=== PATIENT | male | born 1960 | race Caucasian/White ===

== ENCOUNTER 2017-07-21 21:51 | Emergency (ER) | payer OTHER ==
[~2017-07-21] VITALS: Ht 177.8 cm; Wt 136.0 kg
[2017-07-21 21:57] VITALS: BP 163/85; PULSE 93; RESP 18; TEMP 98.7; O2SAT 96
[2017-07-21] MEDS ORDERED: SODIUM CHLORIDE 0.9% FLUSH 10 ML FLUSH IVF PRN (22:15)
[2017-07-21 22:27] VITALS: PULSE 97; RESP 20; O2SAT 96
[2017-07-21] MEDS ORDERED: ASPIRIN 81 MG CHEW TAB CHEW ONE (22:30)
[2017-07-21 22:32] LABS: AUTOMATED NEUTROPHIL # 5.7 TH/MM3 (1.8-7.7); BASOPHIL # 0.1 TH/MM3 (0-0.2); BASOPHIL % 0.7 % (0.0-2.0); EOSINOPHIL # 0.1 TH/MM3 (0-0.4); EOSINOPHIL % 0.7 % (0.0-4.0); HEMATOCRIT 43.6 % (39.0-51.0); HEMOGLOBIN 14.6 GM/DL (13.0-17.0); LYMPH % 23.4 % (9.0-44.0); MEAN CELL VOLUME 93.1 FL (80.0-100.0); MEAN CORPUSCULAR HEMOGLOBIN 31.2 PG (27.0-34.0); MEAN CORPUSCULAR HGB CONC 33.5 % (32.0-36.0); MEAN PLATELET VOLUME 8.1 FL (7.0-11.0); MONO % 8.7 % (0.0-8.0); MONOCYTE # 0.7 TH/MM3 (0-0.9); NEUT % 66.5 % (16.0-70.0); PLATELET COUNT 224 TH/MM3 (150-450); RED BLOOD COUNT 4.68 MIL/MM3 (4.50-5.90); RED CELL DISTRIBUTION WIDTH 16.7 % (11.6-17.2); WHITE BLOOD COUNT 8.5 TH/MM3 (4.0-11.0)
--- NOTE | 2017-07-21 22:33 | PD ---
HPI Chief Complaint: Chest Pain Time Seen by Provider: 22:01 Travel History International Travel<30 days: No Contact w/Intl Traveler<30days: No Traveled to known affect area: No History of Present Illness HPI Patient 57-year-old male presents emergency department heavily intoxicated, his chief complaint to me is that he is tired of being an alcoholic and has tried to quit multiple times and it just keeps relapsing. He did have a complaint of chest pain which he does not endorse until I specifically asked him about it. He states it feels uncomfortable in the middle of his chest without radiation, no shortness of breath no nausea no vomiting no dizziness. As stated above he is heavily intoxicated on arrival, he also later in his history stated that he just needed a place to stay for 4 days because he is probably her back down to [place] to move back in the air. Symptoms moderate, duration unknown associated signs and symptoms in context as above PFSH Past Medical History Bipolar Disorder: Yes Anxiety: Yes Depression: Yes Chest Pain: Yes Diabetes: No Patient Takes Glucophage: No Diminished Hearing: No Psychiatric: Yes Immunizations Current: Yes Tetanus Vaccination: < 5 Years Influenza Vaccination: Yes Social History Alcohol Use: Yes (DAILY) Tobacco Use: Yes (1PPD) Substance Use: No Allergies-Medications (Allergen,Severity, Reaction): Coded Allergies: No Known Allergies (Unverified , 07/21/17) Reported Meds & Prescriptions Reported Meds & Active Scripts Active No Active Prescriptions or Reported Medications Review of Systems Except as stated in HPI: all other systems reviewed are Neg Physical Exam Narrative GENERAL: Well-developed well-nourished no obvious distress SKIN: Focused skin assessment warm/dry. No bruising or laceration seen on his person. HEAD: Atraumatic. Normocephalic. EYES: Pupils equal and round. No scleral icterus. No injection or drainage. ENT: No nasal bleeding or discharge. Mucous membranes pink and moist. NECK: Trachea midline. No JVD. CARDIOVASCULAR: Slightly tachycardic with regular rhythm, no reproducible chest pain. No murmurs gallops or rubs. 2+ bilateral equal pulses in all 4 extremities. No murmur appreciated. RESPIRATORY: No accessory muscle use. Clear to auscultation. Breath sounds equal bilaterally. GASTROINTESTINAL: Abdomen soft, non-tender, nondistended. Hepatic and splenic margins not palpable. MUSCULOSKELETAL: No obvious deformities. No clubbing. No cyanosis. No edema. NEUROLOGICAL: Awake and alert. No obvious cranial nerve deficits. Motor grossly within normal limits. Normal speech. PSYCHIATRIC: Endorses suicidal ideation without planning, denies homicidal ideation denies audiovisual hallucinations. Data Data Last Documented VS Vital Signs Date Time Temp Pulse Resp B/P (MAP) Pulse Ox O2 Delivery O2 Flow Rate FiO2 07/22/17 06:02 102 18 143/60 (87) 98 Nasal Cannula 2.00 07/21/17 21:57 98.7 Orders Orders Ckmb (Isoenzyme) Profile (07/21/17 22:01) Complete Blood Count With Diff (07/21/17 22:) Comprehensive Metabolic Panel (07/21/17 22:01) Magnesium (Mg) (07/21/17 22:01) Prothrombin Time / Inr (Pt) (07/21/17 22:01) Act Partial Throm Time (Ptt) (07/21/17 22:01) Troponin I (07/21/17 22:01) Chest, Single Ap (07/21/17 22:01) Ecg Monitoring (07/21/17 22:01) Iv Access Insert/Monitor (07/21/17 22:01) Oximetry (07/21/17 22:01) Oxygen Administration (07/21/17 22:01) Sodium Chloride 0.9% Flush (Ns Flush) (07/21/17 22:15) Aspirin Chew (Aspirin Chew) (07/21/17 22:30) CKMB (07/21/17 22:02) CKMB% (07/21/17 22:02) Chlordiazepoxide (Librium) (07/22/17 04:30) Alcohol Withdrawal Asmt-Ciwa ONCE (07/22/17 04:37) Lorazepam (Ativan) (07/22/17 04:45) Lorazepam Inj (Ativan Inj) (07/22/17 04:45) Lorazepam (Ativan) (07/22/17 04:45) Lorazepam Inj (Ativan Inj) (07/22/17 04:45) Lorazepam Inj (Ativan Inj) (07/22/17 04:45) Lorazepam Inj (Ativan Inj) (07/22/17 04:45) Lorazepam Inj (Ativan Inj) (07/22/17 04:45) Promethazine Inj (Phenergan Inj) (07/22/17 04:45) Alcohol (Ethanol) (07/22/17 04:39) Drug Screen, Random Urine (07/22/17 04:39) Psych Screen (07/22/17 04:39) Labs Laboratory Tests Test 07/21/17 22:02 07/21/17 22:05 White Blood Count 8.5 TH/MM3 Red Blood Count 4.68 MIL/MM3 Hemoglobin 14.6 GM/DL Hematocrit 43.6 % Mean Corpuscular Volume 93.1 FL Mean Corpuscular Hemoglobin 31.2 PG Mean Corpuscular Hemoglobin Concent 33.5 % Red Cell Distribution Width 16.7 % Platelet Count 224 TH/MM3 Mean Platelet Volume 8.1 FL Neutrophils (%) (Auto) 66.5 % Lymphocytes (%) (Auto) 23.4 % Monocytes (%) (Auto) 8.7 % Eosinophils (%) (Auto) 0.7 % Basophils (%) (Auto) 0.7 % Neutrophils # (Auto) 5.7 TH/MM3 Lymphocytes # (Auto) 2.0 TH/MM3 Monocytes # (Auto) 0.7 TH/MM3 Eosinophils # (Auto) 0.1 TH/MM3 Basophils # (Auto) 0.1 TH/MM3 CBC Comment DIFF FINAL Differential Comment Prothrombin Time 9.5 SEC Prothromb Time International Ratio 0.9 RATIO Activated Partial Thromboplast Time 24.3 SEC Blood Urea Nitrogen 4 MG/DL Creatinine 0.92 MG/DL Random Glucose 137 MG/DL Total Protein 7.5 GM/DL Albumin 3.9 GM/DL Calcium Level 9.8 MG/DL Magnesium Level 2.1 MG/DL Alkaline Phosphatase 142 U/L Aspartate Amino Transf (AST/SGOT) 61 U/L Alanine Aminotransferase (ALT/SGPT) 54 U/L Total Bilirubin 0.5 MG/DL Sodium Level 138 MEQ/L Potassium Level 3.6 MEQ/L Chloride Level 99 MEQ/L Carbon Dioxide Level 23.8 MEQ/L Anion Gap 15 MEQ/L Estimat Glomerular Filtration Rate 85 ML/MIN Total Creatine Kinase 261 U/L Creatine Kinase MB 0.7 NG/ML Troponin I LESS THAN 0.02 NG/ML Ethyl Alcohol Level 422 MG/DL [facility] Medical Decision Making Medical Screen Exam Complete: Yes Emergency Medical Condition: Yes Differential Diagnosis Alcohol intoxication, ACS highly likely, CO highly unlikely, poor social circumstance, Narrative Course Patient room to the emergency department, EKG shows no signs of ischemia, troponin negative, he is sleeping soundly on my initial evaluation on repeat evaluation continues to sleep soundly, certainly I do not think that his symptoms represent acute coronary syndrome and this is stable to be worked up as an outpatient. The patient does endorse suicidal ideation multiple times, I think there is a strong possibility of secondary gain in this patient. He would like to see psychiatry on a voluntary basis. I think this is reasonable given his very vague suicidal ideation. He did have some mild tachycardia and a little episode of emesis later in his stay in the ER, this is responded well to Ativan and Phenergan. He is medically cleared for psychiatric evaluation peer Diagnosis Primary Impression: Alcohol intoxication Additional Impression: Chest pain, atypical Referrals: [facility] Scripts No Active Prescriptions or Reported Meds Condition: Stable Demar Agudelo MD Jul 21, 2017 22:33
--- NOTE | 2017-07-21 22:38 | RADRPT ---
EXAM DATE: 07/21/2017 10:26 PM EDT AGE/SEX: 57 years / Male INDICATIONS: Chest pain. CLINICAL DATA: This is the patient's initial encounter. Patient reports that signs and symptoms have been present for 1 day and indicates a pain score of 5/10. MEDICAL/SURGICAL HISTORY: None. None. COMPARISON: No prior exams available for comparison. FINDINGS: A single AP view of the chest demonstrates the lungs to be symmetrically aerated without evidence of mass, infiltrate or effusion. The cardiomediastinal contours are unremarkable. Osseous structures a re intact. CONCLUSION: No acute findings. Electronically signed by: Nehemiah Zamora MD 07/21/2017 10:36 PM EDT
[2017-07-21 22:49] LABS: ALBUMIN 3.9 GM/DL (3.4-5.0); AST (GOT) 61 U/L (15-37); BICARBONATE 23.8 MEQ/L (21.0-32.0); BLOOD UREA NITROGEN 4 MG/DL (7-18); CALCIUM 9.8 MG/DL (8.5-10.1); CHLORIDE 99 MEQ/L (98-107); CREATININE 0.92 MG/DL (0.60-1.30); GLOMERULAR FILTRATION RATE 85 ML/MIN (>89); GLUCOSE,RANDOM 137 MG/DL (74-106); MAGNESIUM 2.1 MG/DL (1.5-2.5); SODIUM (NA) 138 MEQ/L (136-145)
[2017-07-21 22:50] LABS: ALT (GPT) 54 U/L (12-78)
[2017-07-21 22:53] LABS: ALKALINE PHOSPHATASE 142 U/L (45-117); TOTAL BILIRUBIN ADULT 0.5 MG/DL (0.2-1.0); TOTAL PROTEIN 7.5 GM/DL (6.4-8.2); TROPONIN I LESS THAN 0.02 NG/ML (0.02-0.05)
[2017-07-21 23:12] LABS: INTERNATIONAL NORMALIZED RATIO 0.9 RATIO; PROTHROMBIN TIME - PATIENT 9.5 SEC (9.8-11.6)
[2017-07-22] VITALS (8 sets, daily range): BP systolic 129–172; BP diastolic 60–77; PULSE 93–111; RESP 17–20; TEMP 97.7–99.1; O2SAT 96–99
[2017-07-22] MEDS ORDERED: chlordiazePOXIDE 25 MG CAP PO ONE (04:30)
[2017-07-22] MEDS ORDERED: LORazepam 2 MG/ML VIAL IV PUSH PRN ×2 (04:45)
[2017-07-22] MEDS ORDERED: LORazepam 1 MG TAB PO PRN (04:45)
[2017-07-22] MEDS ORDERED: LORazepam 2 MG TAB PO PRN (04:45)
[2017-07-22] MEDS ORDERED: PROMETHAZINE INJ 25 MG/ML VIAL IM ONE ×2 (04:45→11:00)
[2017-07-22] MEDS ORDERED: LORazepam 2 MG/ML VIAL IV PUSH ONE (04:45)
[2017-07-22] MEDS: LORazepam 2 MG/ML VIAL IV PUSH PRN ×5 (09:02→20:24)
--- NOTE | 2017-07-22 12:40 | EKG ---
Date Performed: 07/21/2017 Time Performed: 20:58:17 PTAGE: 57 years EKG: Sinus rhythm NONSPECIFIC T-WAVE ABNORMALITY BORDERLINE ECG INTERPRETATION BASED ON A DEFAULT AGE OF 41 YEARS NO PREVIOUS TRACING DOCTOR: Abdelrahman Brown Interpretating Date/Time 07/22/2017 12:37:02
--- NOTE | 2017-07-22 17:27 | PD ---
History of Present Illness Chief Complaint: Chest Pain Time Seen by Provider: 16:00 Travel History International Travel<30 Days: No Contact w/Intl Traveler<30days: No Known affected area: No Legal Status Legal Status: Voluntary History of Present Illness: This is a 57-year-old single, male reports to this facility voluntarily for reported suicidal ideation. Patient has not previously been seen at this facility for psychiatric treatment. Reviewed electronic medical record, labs, discussed case with staff. Patient's blood alcohol level 0.422. He is examined in his room and J pod with martin Mathew present. Is awake, alert, and oriented 4. His mood is anxious as is his affect. He is visibly tremulous and diaphoretic. He endorses suicidal by overdose. He denies being homicidal or experiencing auditory or visual hallucinations. He does not appear to be internally stimulated nor is there any indication of thought blocking. I can elicit no delusional material nor does he appear to be manic. He advises that he has been struggling with chronic alcoholism for very long time. He states that he had been sober for approximately 3 months and then fell off the wagon approximately 2 months ago. He self reports a diagnosis of bipolar disorder and states that he stopped taking his medications 2 months ago. He reports his last inpatient admission was in [facility] approximately 6 months ago. He states that he recently moved up here and has been unable to establish with anyone outpatient for psychiatric care. [facility] Past Medical History Bipolar Disorder: Yes Anxiety: Yes Depression: Yes Chest Pain: Yes Diabetes: No Patient Takes Glucophage: No Diminished Hearing: No Psychiatric: Yes Immunizations Current: Yes Tetanus Vaccination: < 5 Years Influenza Vaccination: Yes Psychiatric History Psychiatric History He is also reports being diagnosed with bipolar disorder in 2007 at [facility]. He states that his last inpatient admission was in [place] approximately 6 months ago. He reports 2 previous suicide attempts the last being in 2004 when he "slit my wrist". History of Inpatient Treatment: Yes (Self-reported) Guns or firearms in home: No Social History Hx Alcohol Use: Yes (DAILY) Hx Tobacco Use: Yes (1PPD) Hx Substance Use: No Substance Use Type: Alcohol (Per patient he drinks "a quarter fireball a day and some beer".) Hx of Substance Use Treatment: No Allergies-Medications (Allergen,Severity, Reaction): Coded Allergies: No Known Allergies (Unverified , 07/21/17) Reported Meds & Prescriptions Reported Meds & Active Scripts Active No Active Prescriptions or Reported Medications Mental Status Examination Appearance: Disheveled Consciousness: Alert Orientation: x4 Speech: Unremarkable Language: Adequate Fund of Knowledge: Adequate Attention and Concentration: Adequate Memory: Unremarkable Mood: Anxious Affect: Anxious Thought Process & Associations: Intact, Goal directed Thought Content: Appropriate Hallucination Type: None Suicidal Ideation: Yes Suicidal Plan: Yes Suicidal Intention: No Homicidal Ideation: No Homicidal Plan: No Homicidal Intention: No Insight: Fair Judgment: Impulsive MDM Medical Decision Making Medical Record Reviewed: Yes Assessment/Plan This is a 57-year-old single, male reports to this facility voluntarily for reported suicidal ideation. Patient has not previously been seen at this facility for psychiatric treatment. Reviewed electronic medical record, labs, discussed case with staff. Patient's blood alcohol level 0.422. He is examined in his room and J pod with martin Mathew present. Is awake, alert, and oriented 4. His mood is anxious as is his affect. He is visibly tremulous and diaphoretic. He endorses suicidal by overdose. He denies being homicidal or experiencing auditory or visual hallucinations. He does not appear to be internally stimulated nor is there any indication of thought blocking. I can elicit no delusional material nor does he appear to be manic. He advises that he has been struggling with chronic alcoholism for very long time. He states that he had been sober for approximately 3 months and then fell off the wagon approximately 2 months ago. He self reports a diagnosis of bipolar disorder and states that he stopped taking his medications 2 months ago. He reports his last inpatient admission was in [facility] approximately 6 months ago. He states that he recently moved up here and has been unable to establish with anyone outpatient for psychiatric care. I consulted with psychiatrist on-call, Dr. Babb. Given that this patient is actively going through withdrawal, requesting detox, and reporting a history of mental illness he will be presented to the [facility] for possible admission for dual diagnosis treatment. Orders Orders Ckmb (Isoenzyme) Profile (07/21/17 22:) Complete Blood Count With Diff (07/21/17 22:) Comprehensive Metabolic Panel (07/21/17 22:) Magnesium (Mg) (07/21/17 22:) Prothrombin Time / Inr (Pt) (07/21/17 22:) Act Partial Throm Time (Ptt) (07/21/17 22:) Troponin I (07/21/17:) Chest, Single Ap (07/21/17 22:) Ecg Monitoring (07/21/17 22:) Iv Access Insert/Monitor (07/21/17:) Oximetry (07/21/17:) Oxygen Administration (07/21/17:) Sodium Chloride 0.9% Flush (Ns Flush) (07/21/17 22:15) Aspirin Chew (Aspirin Chew) (07/21/17 22:30) CKMB (07/21/17 22:02) CKMB% (07/21/17 22:02) Chlordiazepoxide (Librium) (07/22/17 04:30) Alcohol Withdrawal Asmt-Ciwa ONCE (07/22/17 04:37) Lorazepam (Ativan) (07/22/17 04:45) Lorazepam Inj (Ativan Inj) (07/22/17 04:45) Lorazepam (Ativan) (07/22/17 04:45) Lorazepam Inj (Ativan Inj) (07/22/17 04:45) Lorazepam Inj (Ativan Inj) (07/22/17 04:45) Lorazepam Inj (Ativan Inj) (07/22/17 04:45) Lorazepam Inj (Ativan Inj) (07/22/17 04:45) Promethazine Inj (Phenergan Inj) (07/22/17 04:45) Alcohol (Ethanol) (07/22/17 04:39) Drug Screen, Random Urine (07/22/17 04:39) Psych Screen (07/22/17 04:39) Electrocardiogram (07/22/17 20:58) Promethazine Inj (Phenergan Inj) (07/22/17 11:00) Electrocardiogram (6/16/18 09:22) Diet Regular Basic (07/22/17 Dinner) Results Vital Signs Date Time Temp Pulse Resp B/P (MAP) Pulse Ox O2 Delivery O2 Flow Rate FiO2 07/22/17 12:58 97.7 100 20 165/74 (104) 98 Nasal Cannula 2.00 07/22/17 12:10 97.9 98 17 145/66 (92) 98 Nasal Cannula 2.00 07/22/17 10:16 97.7 111 18 155/77 (103) 96 Nasal Cannula 2.00 07/22/17 07:20 18 98 Nasal Cannula 2.00 07/22/17 07:20 103 16 98 Nasal Cannula 2.00 07/22/17 07:20 98 Nasal Cannula 2.00 07/22/17 07:20 97.8 103 19 129/67 (87) 96 Nasal Cannula 2.00 07/22/17 06:02 102 18 143/60 (87) 98 Nasal Cannula 2.00 07/21/17 22:27 97 20 96 Nasal Cannula 2.00 07/21/17 22:27 90 Nasal Cannula 2.00 07/21/17 21:57 98.7 93 18 163/85 (111) 96 Laboratory Tests Test 07/21/17 22:02 07/21/17 22:05 White Blood Count 8.5 Red Blood Count 4.68 Hemoglobin 14.6 Hematocrit 43.6 Mean Corpuscular Volume 93.1 Mean Corpuscular Hemoglobin 31.2 Mean Corpuscular Hemoglobin Concent 33.5 Red Cell Distribution Width 16.7 Platelet Count 224 Mean Platelet Volume 8.1 Neutrophils (%) (Auto) 66.5 Lymphocytes (%) (Auto) 23.4 Monocytes (%) (Auto) 8.7 Eosinophils (%) (Auto) 0.7 Basophils (%) (Auto) 0.7 Neutrophils # (Auto) 5.7 Lymphocytes # (Auto) 2.0 Monocytes # (Auto) 0.7 Eosinophils # (Auto) 0.1 Basophils # (Auto) 0.1 CBC Comment DIFF FINAL Differential Comment Prothrombin Time 9.5 Prothromb Time International Ratio 0.9 Activated Partial Thromboplast Time 24.3 Blood Urea Nitrogen 4 Creatinine 0.92 Random Glucose 137 Total Protein 7.5 Albumin 3.9 Calcium Level 9.8 Magnesium Level 2.1 Alkaline Phosphatase 142 Aspartate Amino Transf (AST/SGOT) 61 Alanine Aminotransferase (ALT/SGPT) 54 Total Bilirubin 0.5 Sodium Level 138 Potassium Level 3.6 Chloride Level 99 Carbon Dioxide Level 23.8 Anion Gap 15 Estimat Glomerular Filtration Rate 85 Total Creatine Kinase 261 Creatine Kinase MB 0.7 Troponin I LESS THAN 0.02 Ethyl Alcohol Level 422 Diagnosis Primary Impression: Alcoholism, chronic Additional Impression: Bipolar disorder with depression Prescriptions No Active Prescriptions or Reported Meds Problem Qualifiers Opal Gupta Jul 22, 2017 17:27
[2017-07-23 02:29] VITALS: BP 195/90; PULSE 90; RESP 19; TEMP 98; O2SAT 94
[2017-07-23] MEDS ORDERED: cloNIDine HCL 0.1 MG TAB PO ONE (02:45)
[2017-07-23 04:26] VITALS: BP 142/68; PULSE 80; RESP 18; TEMP 98.7; O2SAT 97
[2017-07-23 06:22] VITALS: BP 136/69; PULSE 79; RESP 18; TEMP 98.7; O2SAT 95
--- NOTE | 2017-07-23 08:44 | PD ---
Physical Exam Date Seen by Provider: Jul 23, 2017 Time Seen by Provider: 08:41 Data Data Last Documented VS Vital Signs Date Time Temp Pulse Resp B/P (MAP) Pulse Ox O2 Delivery O2 Flow Rate FiO2 07/23/17 06:22 98.7 79 18 136/69 (91) 95 Room Air 07/22/17 12:58 2.00 Orders Orders Ckmb (Isoenzyme) Profile (07/21/17 22:01) Complete Blood Count With Diff (07/21/17 22:) Comprehensive Metabolic Panel (07/21/17 22:01) Magnesium (Mg) (07/21/17 22:01) Prothrombin Time / Inr (Pt) (07/21/17 22:01) Act Partial Throm Time (Ptt) (07/21/17 22:) Troponin I (07/21/17 22:) Chest, Single Ap (07/21/17 22:01) Ecg Monitoring (07/21/17 22:01) Iv Access Insert/Monitor (07/21/17 22:) Oximetry (07/21/17 22:) Oxygen Administration (07/21/17 22:01) Sodium Chloride 0.9% Flush (Ns Flush) (07/21/17 22:15) Aspirin Chew (Aspirin Chew) (07/21/17 22:30) CKMB (07/21/17 22:02) CKMB% (07/21/17 22:02) Chlordiazepoxide (Librium) (07/22/17 04:30) Alcohol Withdrawal Asmt-Ciwa ONCE (07/22/17 04:37) Lorazepam (Ativan) (07/22/17 04:45) Lorazepam Inj (Ativan Inj) (07/22/17 04:45) Lorazepam (Ativan) (07/22/17 04:45) Lorazepam Inj (Ativan Inj) (07/22/17 04:45) Lorazepam Inj (Ativan Inj) (07/22/17 04:45) Lorazepam Inj (Ativan Inj) (07/22/17 04:45) Lorazepam Inj (Ativan Inj) (07/22/17 04:45) Promethazine Inj (Phenergan Inj) (07/22/17 04:45) Alcohol (Ethanol) (07/22/17 04:39) Drug Screen, Random Urine (07/22/17 04:39) Psych Screen (07/22/17 04:39) Electrocardiogram (07/22/17 20:58) Promethazine Inj (Phenergan Inj) (07/22/17 11:00) Electrocardiogram (07/22/17 09:22) Diet Regular Basic (07/22/17 Dinner) Clonidine (Catapres) (07/23/17 02:45) Diet Regular Basic (07/23/17 Breakfast) Labs Laboratory Tests Test 07/21/17 22:02 07/21/17 22:05 07/22/17 20:10 White Blood Count 8.5 TH/MM3 Red Blood Count 4.68 MIL/MM3 Hemoglobin 14.6 GM/DL Hematocrit 43.6 % Mean Corpuscular Volume 93.1 FL Mean Corpuscular Hemoglobin 31.2 PG Mean Corpuscular Hemoglobin Concent 33.5 % Red Cell Distribution Width 16.7 % Platelet Count 224 TH/MM3 Mean Platelet Volume 8.1 FL Neutrophils (%) (Auto) 66.5 % Lymphocytes (%) (Auto) 23.4 % Monocytes (%) (Auto) 8.7 % Eosinophils (%) (Auto) 0.7 % Basophils (%) (Auto) 0.7 % Neutrophils # (Auto) 5.7 TH/MM3 Lymphocytes # (Auto) 2.0 TH/MM3 Monocytes # (Auto) 0.7 TH/MM3 Eosinophils # (Auto) 0.1 TH/MM3 Basophils # (Auto) 0.1 TH/MM3 CBC Comment DIFF FINAL Differential Comment Prothrombin Time 9.5 SEC Prothromb Time International Ratio 0.9 RATIO Activated Partial Thromboplast Time 24.3 SEC Blood Urea Nitrogen 4 MG/DL Creatinine 0.92 MG/DL Random Glucose 137 MG/DL Total Protein 7.5 GM/DL Albumin 3.9 GM/DL Calcium Level 9.8 MG/DL Magnesium Level 2.1 MG/DL Alkaline Phosphatase 142 U/L Aspartate Amino Transf (AST/SGOT) 61 U/L Alanine Aminotransferase (ALT/SGPT) 54 U/L Total Bilirubin 0.5 MG/DL Sodium Level 138 MEQ/L Potassium Level 3.6 MEQ/L Chloride Level 99 MEQ/L Carbon Dioxide Level 23.8 MEQ/L Anion Gap 15 MEQ/L Estimat Glomerular Filtration Rate 85 ML/MIN Total Creatine Kinase 261 U/L Creatine Kinase MB 0.7 NG/ML Troponin I LESS THAN 0.02 NG/ML Ethyl Alcohol Level 422 MG/DL Urine Opiates Screen NEG Urine Barbiturates Screen NEG Urine Amphetamines Screen NEG Urine Benzodiazepines Screen NEG Urine Cocaine Screen NEG Urine Cannabinoids Screen NEG MDM Supervised Visit with TAMIKA: No Narrative Course 57-year-old male initially seen in the ED by Dr. Demar Agudelo and cleared from a medical perspective. He sought voluntary psychiatric evaluation. This was performed this morning by Dr. Babb. He thinks the patient safe for outpatient follow-up with [facility] for chronic alcoholism. The patient is stable and discharged home. Diagnosis Primary Impression: Alcoholism, chronic Additional Impression: Bipolar disorder with depression Referrals: [facility] Additional Instruction: Follow-up with [facility] for outpatient treatment of chronic alcoholism. Do not try to quit drinking on your own as this can be dangerous. Return to the ED for any urgent or emergent medical condition. Scripts No Active Prescriptions or Reported Meds Disposition: 01 DISCHARGE HOME Condition: Stable Kourtney Mckeon Jul 23, 2017 08:44
[2017-07-23 09:03] VITALS: BP 172/74; PULSE 88; RESP 18; TEMP 97.4; O2SAT 95
[2017-07-23] MEDS ORDERED: LORazepam 2 MG TAB PO STA (09:21)
[2017-07-23 09:36] VITALS: BP 172/74; TEMP 97.4
--- NOTE | 2017-07-23 14:05 | EKG ---
Date Performed: 07/22/2017 Time Performed: 09:22:07 PTAGE: 57 years EKG: SINUS TACHYCARDIA WITH SHORT FL INTERVAL ABNORMAL RHYTHM ECG INTERPRETATION BASED ON A MARY ULT AGE OF 41 YEARS PREVIOUS TRACING :07/21/2017 @20.58 Since the previous tracing, no significant change note d DOCTOR: Abdelrahman Brown Interpretating Date/Time 07/23/2017 14:05:45
== END 2017-07-23 10:34 | disposition home or self-care (01) ==
LOC: NEPE 21:51 → NEPJ 07-23 10:34
DX: F10.229 Alcohol dependence with intoxication, unspecified (principal); F31.9 Bipolar disorder, unspecified; F17.200 Nicotine dependence, unspecified, uncomplicated; R00.0 Tachycardia, unspecified; R61 Generalized hyperhidrosis; Y90.8 Blood alcohol level of 240 mg/100 ml or more
CPT/HCPCS: 71045; 80053; 80307; 82550; 82552; 83735; 84484; 85025; 85610; 85730; 93005; 96372; 96374; 96376; 99285; J2060; J2550

== ENCOUNTER 2017-10-09 01:19 | Inpatient (IN) ==
--- NOTE | 2017-10-09 02:33 | XR ---
EXAM DATE: 10/09/2017 2:28 AM EDT AGE/SEX: 57 years / Male INDICATIONS: Chest pain. CLINICAL DATA: This is the patient's initial encounter. Patient reports that signs and symptoms have been present for 1 day and indicates a pain score of 8/10. MEDICAL/SURGICAL HISTORY: None. None. [place] [facility] [place]. . FINDINGS: Portable AP view of the chest demonstrates a normal-sized cardiac silhouette. No effusion, consolidat ion, or pneumothorax is identified. The bones and soft tissues demonstrate no acute finding. CONCLUSION: No acute cardiopulmonary abnormality is identified. Electronically signed by: Quincy Adam MD 10/09/2017 2:31 AM EDT
[2017-10-09 02:51] LABS: Baso % (Auto) 0.5 % (0.0-2.0); Eos % (Auto) 0.3 % (0.0-4.0); Hematocrit 44.9 % (39.0-51.0); Hemoglobin 15.3 gm/dL (13.0-17.0); Lymph # (Auto) 2.4 th/mm3 (1.0-4.8); Lymph % (Auto) 29.9 % (9.0-44.0); Mean Corpuscular Hemoglobin 32.5 pg (27.0-34.0); Mean Corpuscular Volume 95.4 fL (80.0-100.0); Mean Platelet Volume 7.9 fL (7.0-11.0); Mono # (Auto) 0.8 th/mm3 (0.0-0.9); Mono % (Auto) 10.5 % (0.0-8.0); Neut # (Auto) 4.7 th/mm3 (1.8-7.7); Neut % (Auto) 58.8 % (16.0-70.0); Platelet Count 224 th/mm3 (150-450); Red Blood Count 4.71 mil/mm3 (4.50-5.90); Red Cell Distribution Width 16.3 % (11.6-17.2)
[2017-10-09 03:02] LABS: Prothrombin Time 10.3 sec (9.8-11.6)
[2017-10-09 03:13] LABS: Alkaline Phosphatase 122 U/L (45-117); Creatine Kinase 999 U/L (39-308); Total Protein 7.3 g/dL (6.4-8.2); Troponin I 0.02 ng/mL (0.02-0.05)
[2017-10-09 03:15] LABS: Alanine Aminotransferase 54 U/L (12-78); Albumin 3.7 g/dL (3.4-5.0); Anion Gap 15 meq/L (5-15); Aspartate Aminotransferase 127 U/L (15-37); Blood Urea Nitrogen 8 mg/dL (7-18); Calcium 7.9 mg/dL (8.5-10.1); Carbon Dioxide 24.8 meq/L (21.0-32.0); Chloride 102 meq/L (98-107); Glomerular Filtration Rate 83 mL/min (>89); Glucose,Random 122 mg/dL (74-106); Lipase 57 U/L (73-393); Magnesium 2.1 mg/dL (1.5-2.5); Potassium 4.1 meq/L (3.5-5.1); Sodium 142 meq/L (136-145)
[2017-10-09 03:19] LABS: Alcohol 346 mg/dL (0-5)
[2017-10-09 03:31] LABS: CKMB Percent 0.9 % (0.0-4.0); Creatine Kinase MB 9.2 ng/mL (0.5-3.6)
--- NOTE | 2017-10-09 06:23 | ED ---
HPI General Chief Complaint: Chest Pain Stated Complaint: chest pain Time Seen by Provider: 10/09/17 02:12 Source: patient Mode of arrival: ambulatory Limitations: no limitations History of Present Illness HPI narrative: 57-year-old male presents to the emergency department by EMS transport for evaluation of chest pain. Patient admits to drinking alcohol and tobacco use. Patient admits to history of hypertension and dyslipidemia. Patient has family history of premature onset heart disease in his father. Patient rates his chest pain as present but is unable to identify intensity. Patient denies injury or fall. Patient is not diabetic. MD complaint: chest pain Complete Quality Measures for STEMI Alert Patients STEMI Alert: No Onset (ago): unknown Duration: constant Onset: during rest Pain location: substernal Severity: moderate Quality: tightness Pain radiation: none Relieving factors: nothing Exacerbating factors: nothing Treatments prior to arrival chest pain: none Related Data Home Medications Medication Instructions Recorded Confirmed bupropion HCl [Wellbutrin SR] 100 mg PO BID 10/09/17 10/09/17 Allergies Allergy/AdvReac Type Severity Reaction Status Date / Time No Known Allergies Allergy Unverified 07/21/17 22:00 Review of Systems ROS: all other systems reviewed are negative PMFSH History History Provided By: Patient (Hypertension dyslipidemia tobacco use; family history CAD) Social History Social History Substance History: No History of Abuse Second Hand Smoke Exposure: Yes Smoking Status: Current every day smoker Tobacco Type: Cigarettes How Often Do You Have a Drink Containing Alcohol: 4 or more times a week Immunization History Tetanus Immunization: >5 Years Hx Influenza Vaccine This Season: No Exam Narrative Exam Narrative: GENERAL: Well-nourished, well-developed patient. Appears intoxicated GCS 15. SKIN: Focused skin assessment warm/dry. HEAD: Normocephalic. EYES: No scleral icterus. No injection or drainage. NECK: Supple, trachea midline. No JVD or lymphadenopathy. CARDIOVASCULAR: Regular rate and rhythm without murmurs, gallops, or rubs. RESPIRATORY: Breath sounds equal bilaterally. No accessory muscle use. GASTROINTESTINAL: Abdomen soft, non-tender, nondistended. MUSCULOSKELETAL: No cyanosis, or edema. BACK: Nontender without obvious deformity. No CVA tenderness. Course Initial Documented Vital Signs Respiratory Rate 18 10/09/17 01:33 Pulse Oximetry 99 10/09/17 01:33 Last Documented Vital Signs Pulse Rate 111 H 10/09/17 08:20 Respiratory Rate 24 10/09/17 07:22 Blood Pressure 139/63 10/09/17 07:22 Pulse Oximetry 96 10/09/17 07:23 Medical Decision Making MDM Narrative Medical decision making narrative: 57-year-old male with known history of hypertension dyslipidemia tobacco use and family history of premature onset heart disease presents with complaint of chest pain given aspirin in the emergency department is not having chest pain at this time and alcoholism Patient placed on continuous pulse oximetry and telemetry monitor IV access obtained specimens collected and sent for resulting patient administered aspirin 1 dose as he is not having chest pain at this time no nitroglycerin administered EKG shows sinus rhythm with sinus tachycardia rate [address] elevation injury pattern or ectopy Medical Screen Exam Complete: Yes Emergency Medical Condition: Yes Differential Diagnosis Differential Diagnosis: Atypical chest pain, ACS, KS, contusion, costochondritis , alcoholism, electrolyte disturbance, PE, dissection Medical Records Medical records reviewed: Yes I reviewed the patient's medical records. Lab Data Lab results reviewed: Yes I reviewed the patient's lab results. Lab results narrative: Advised Result diagrams: 10/09/17 02:30 10/09/17 02:30 Lab Results 10/09/17 10/09/17 10/09/17 Range/Units 02:30 02:30 02:30 WBC 8.0 (4.0-11.0) th/mm3 RBC 4.71 (4.50-5.90) mil/mm3 Hgb 15.3 (13.0-17.0) gm/dL Hct 44.9 (39.0-51.0) % MCV 95.4 (80.0-100.0) fL MCH 32.5 (27.0-34.0) pg MCHC 34.0 (32.0-36.0) % RDW 16.3 (11.6-17.2) % Plt Count 224 (150-450) th/mm3 MPV 7.9 (7.0-11.0) fL Neut % (Auto) 58.8 (16.0-70.0) % Lymph % (Auto) 29.9 (9.0-44.0) % [place] % (Auto) 10.5 H (0.0-8.0) % Eos % (Auto) 0.3 (0.0-4.0) % Baso % (Auto) 0.5 (0.0-2.0) % Neut # (Auto) 4.7 (1.8-7.7) th/mm3 Lymph # (Auto) 2.4 (1.0-4.8) th/mm3 [place] # (Auto) 0.8 (0.0-0.9) th/mm3 Eos # (Auto) 0.0 (0.0-0.4) th/mm3 Baso # (Auto) 0.0 (0.0-0.2) th/mm3 WBC Differential . Differential Comment Auto diff final PT 10.3 (9.8-11.6) sec INR 1.0 Ratio APTT 25.0 (24.3-30.1) sec Sodium 142 (136-145) meq/L Potassium 4.1 (3.5-5.1) meq/L Chloride 102 (98-107) meq/L Carbon Dioxide 24.8 (21.0-32.0) meq/L Anion Gap 15 (5-15) meq/L BUN 8 (7-18) mg/dL Creatinine 0.94 (0.60-1.30) mg/dL Estimated GFR 83 L (>89) mL/min Random Glucose 122 H (74-106) mg/dL Calcium 7.9 L (8.5-10.1) mg/dL Magnesium 2.1 (1.5-2.5) mg/dL Total Bilirubin 0.4 (0.2-1.0) mg/dL AST 127 H (15-37) U/L ALT 54 (12-78) U/L Alkaline Phosphatase 122 H (45-117) U/L Total Creatine Kinase 999 H (39-308) U/L CK-MB (CK-2) 9.2 H (0.5-3.6) ng/mL CK-MB (CK-2) % 0.9 (0.0-4.0) % Troponin I 0.02 (0.02-0.05) ng/mL Total Protein 7.3 (6.4-8.2) g/dL Albumin 3.7 (3.4-5.0) g/dL Lipase 57 L (73-393) U/L Serum Alcohol 346 H (0-5) mg/dL 10/09/17 Range/Units 08:20 WBC (4.0-11.0) th/mm3 RBC (4.50-5.90) mil/mm3 Hgb (13.0-17.0) gm/dL Hct (39.0-51.0) % MCV (80.0-100.0) fL MCH (27.0-34.0) pg MCHC (32.0-36.0) % RDW (11.6-17.2) % Plt Count (150-450) th/mm3 MPV (7.0-11.0) fL Neut % (Auto) (16.0-70.0) % Lymph % (Auto) (9.0-44.0) % Divide % (Auto) (0.0-8.0) % Eos % (Auto) (0.0-4.0) % Baso % (Auto) (0.0-2.0) % Neut # (Auto) (1.8-7.7) th/mm3 Lymph # (Auto) (1.0-4.8) th/mm3 [place] # (Auto) (0.0-0.9) th/mm3 Eos # (Auto) (0.0-0.4) th/mm3 Baso # (Auto) (0.0-0.2) th/mm3 WBC Differential Differential Comment PT (9.8-11.6) sec INR Ratio APTT (24.3-30.1) sec Sodium (136-145) meq/L Potassium (3.5-5.1) meq/L Chloride (98-107) meq/L Carbon Dioxide (21.0-32.0) meq/L Anion Gap (5-15) meq/L BUN (7-18) mg/dL Creatinine (0.60-1.30) mg/dL Estimated GFR (>89) mL/min Random Glucose (74-106) mg/dL Calcium (8.5-10.1) mg/dL Magnesium (1.5-2.5) mg/dL Total Bilirubin (0.2-1.0) mg/dL AST (15-37) U/L ALT (12-78) U/L Alkaline Phosphatase (45-117) U/L Total Creatine Kinase 946 H (39-308) U/L CK-MB (CK-2) (0.5-3.6) ng/mL CK-MB (CK-2) % (0.0-4.0) % Troponin I Less than 0.02 L (0.02-0.05) ng/mL Total Protein (6.4-8.2) g/dL Albumin (3.4-5.0) g/dL Lipase (73-393) U/L Serum Alcohol (0-5) mg/dL Imaging Data Radiologist's impression: Chest X-Ray 10/09/17 02:12 CONCLUSION: No acute cardiopulmonary abnormality is identified. ECG Data Interpretation: EKG: Sinus tachycardia rate [address] elevation injury pattern or ectopy noted Discharge Plan Discharge Disposition Patient Disposition: 30 Still Patient Discharge Condition Condition: Stable Discharge Details Diagnosis: Chest pain, Alcoholism Physicians Team ED Provider: Anette Osborne Primary Care Provider: UNKNOWN, Attending Provider: Hector Hanks Discharge Interventions Interventions: ED Discharge Assessment Last Done: 10/09/17 08:31 Status ED Status: Left Department Discharge Information Discharge Date/Time: 10/09/17 08:31
[2017-10-09] MEDS ORDERED: Haloperidol Inj 5 MG/ML Ampul IV.PUSH PRN (06:30)
[2017-10-09] MEDS: Heparin - SQ 10,000 UNITS/ML Vial SQ SCH ×3 (08:14→22:08)
[2017-10-09] MEDS: Sod Chloride 0.9% Inj 1,000 ML IV.CONT SCH ×2 (08:14→18:38)
[2017-10-09 09:00] LABS: Creatine Kinase 946 U/L (39-308)
[2017-10-09 09:13] LABS: CKMB Percent 0.8 % (0.0-4.0); Creatine Kinase MB 7.8 ng/mL (0.5-3.6)
[2017-10-09] MEDS: Propranolol 10 MG Tablet PO SCH (11:05)
[2017-10-09] MEDS: LORazepam 1 MG Tablet PO PRN (11:54)
[2017-10-09] MEDS ORDERED: Thiamine Inj 100 MG in Sodium Chlor 0.9% Inj 100 ML IV.SIG ONE (12:30)
[2017-10-09] MEDS ORDERED: Aluminum/Magnesium/Simethacone Susp 30 ML UDC PO ONE (12:30)
--- NOTE | 2017-10-09 12:45 | P.HP ---
History of Present Illness Service: [facility] Primary Care Physician: UNKNOWN Chief Complaint: "Chest Pain, Alcohol drinking" History of Present Illness: Patient is a 57-year-old male with past medical history of alcohol abuse, depression who came into the hospital for complaints of chest pain. Patient seen and examined today. States that he has been depressed for more than a year now and has been drinking whiskey. Patient states that he wants to drink himself to , when asked if he has suicidal ideation he nods his head and states that he really wants to go. States that he used to be detoxed at the [facility] before and placed on Bupropion but was not really taking it at home. Tearful, He was asked again about planning to hurt himself and he answered "Yes." C/o chest discomfort, palpitations. Denies SOB/ dyspnea. Denies headaches, dizziness. Denies fevers, chills, n/v/d. Denies dysuria. Reports multiple falls from drinking. CPK elevated 999-->946 CXR no acute cardiopulmonary abnormality is identified - Diagnosis (1) ETOH abuse Review of Systems All other systems reviewed negative except as stated in HPI [facility] - History History Provided By: Patient (Hypertension dyslipidemia tobacco use; family history CAD) - Medical History Medical History: Medical History (Last Updated 10/09/17 @ 12:22 by TIERRA Lopez) Alcohol abuse Depression History of lower leg fracture - Family History Family History: Family History (Last Updated 10/09/17 @ 12:23 by TIERRA Lopez) Mother Heart disease Grandparent No problems noted. Father Heart disease - Tobacco History Second Hand Smoke Exposure: Yes Tobacco Use In Past 30 Days: Yes Smoking Status: Current every day smoker Tobacco Type: Cigarettes - Alcohol History How Often Do You Have a Drink Containing Alcohol: 4 or more times a week - Substance Use History Substance History: No History of Abuse - Immunization History Tetanus Immunization: >5 Years Hx Influenza Vaccine This Season: No Medications and Allergies Active Medications: Active Medications Al Hydrox/Mg Hydrox/Simethicone (Mag-Al Plus Susp Liq) 30 ml PO ONCE ONE Stop: 10/09/17 12:06 Flumazenil (Romazecon Inj) 0.2 mg IV.PUSH Q1M PRN PRN Reason: OVERSEDATION Haloperidol Lactate (Haldol Inj) 1 mg IV.PUSH Q15M PRN PRN Reason: for severe agitation Heparin Sodium (Porcine) (Heparin Inj) 5,000 units SQ Q8H [facility] Last Admin: 10/09/17 08:14 Dose: 5,000 units Sodium Chloride (Ns Inj) 1,000 mls @ 200 mls/hr IV.CONT .Q5H [facility] Last Admin: 10/09/17 08:14 Dose: 100 mls/hr Thiamine HCl 100 mg/ Sodium (Chloride) 101 mls @ 100 mls/hr IV.SIG ONCE ONE Stop: 10/09/17 13:30 Lorazepam (Ativan Inj) 1 mg IV.PUSH Q4H PRN PRN Reason: for CIWA 8-10 Last Admin: 10/09/17 08:15 Dose: 1 mg Lorazepam (Ativan Inj) 2 mg IV.PUSH Q15M PRN PRN Reason: for CIWA > 20 Lorazepam (Ativan Inj) 2 mg IV.PUSH Q1H PRN PRN Reason: for CIWA 15-20 Lorazepam (Ativan Inj) 2 mg IV.PUSH Q2H PRN PRN Reason: for CIWA 11-14 Lorazepam (Ativan) 1 mg PO Q4H PRN PRN Reason: for CIWA 8-10 Last Admin: 10/09/17 11:54 Dose: 1 mg Lorazepam (Ativan) 2 mg PO Q2H PRN PRN Reason: for CIWA 11-14 Ondansetron HCl (Zofran Inj) 4 mg IV.PUSH Q6H PRN PRN Reason: NAUSEA OR VOMITING Last Admin: 10/09/17 09:56 Dose: 4 mg Sodium Chloride (Ns Flush) 2 ml IV.FLUSH UNSCH PRN PRN Reason: FLUSH AFTER USING IV ACCESS Allergies Allergy/AdvReac Type Severity Reaction Status Date / Time No Known Allergies Allergy Unverified 07/21/17 22:00 Home Medications Medication Instructions Recorded Confirmed Type bupropion HCl [Wellbutrin SR] 100 mg PO BID 10/09/17 10/09/17 History Exam Vital signs: Vital Signs 10/09/17 01:33 10/09/17 01:38 10/09/17 05:40 Pulse Rate 116 H Respiratory Rate 18 20 19 Blood Pressure 146/80 H 139/63 Pulse Oximetry 99 94 L 98 10/09/17 07:22 10/09/17 07:23 10/09/17 08:00 Pulse Rate 124 H 114 H Respiratory Rate 24 Blood Pressure 139/63 Pulse Oximetry 90 L 96 10/09/17 08:20 Pulse Rate 111 H Respiratory Rate Blood Pressure Pulse Oximetry Intake & Output 10/08/17 10/09/17 10/09/17 18:59 06:59 18:59 Weight 101 kg Other: Date of Last Bowel Movement 10/08/17 Narrative: GENERAL: This is an obese, well-developed patient, in no apparent distress. SKIN: Warm and dry. Multiple bruising BLE, reports multiple falls. HEENT: Normocephalic. Pupils equal round and reactive. Nose without bleeding. Airway patent. NECK: Trachea midline. Supple. CARDIOVASCULAR: Tachycardia, without murmurs, gallops, or rubs. RESPIRATORY: Clear to auscultation. Breath sounds equal bilaterally. No wheezes , rales, or rhonchi. GASTROINTESTINAL: Abdomen soft, non-tender, protuberant. Bowel Sounds normoactive x4. MUSCULOSKELETAL: Extremities without clubbing, cyanosis, or edema. NEUROLOGICAL: Awake and alert. No focal neuro deficit. Moves all extremities. Normal speech. Results - Labs CBC & Chem 7: 10/09/17 02:30 10/09/17 02:30 Labs: Laboratory Results - last 24 hr 10/09/17 10/09/17 10/09/17 02:30 02:30 02:30 WBC 8.0 RBC 4.71 Hgb 15.3 Hct 44.9 MCV 95.4 MCH 32.5 MCHC 34.0 RDW 16.3 Plt Count 224 MPV 7.9 Neut % (Auto) 58.8 Lymph % (Auto) 29.9 [place] % (Auto) 10.5 H Eos % (Auto) 0.3 Baso % (Auto) 0.5 Neut # (Auto) 4.7 Lymph # (Auto) 2.4 [place] # (Auto) 0.8 Eos # (Auto) 0.0 Baso # (Auto) 0.0 WBC Differential . Differential Comment Auto diff final PT 10.3 INR 1.0 APTT 25.0 Sodium 142 Potassium 4.1 Chloride 102 Carbon Dioxide 24.8 Anion Gap 15 BUN 8 Creatinine 0.94 Estimated GFR 83 L POC Glucose Random Glucose 122 H Calcium 7.9 L Magnesium 2.1 Total Bilirubin 0.4 AST 127 H ALT 54 Alkaline Phosphatase 122 H Total Creatine Kinase 999 H CK-MB (CK-2) 9.2 H CK-MB (CK-2) % 0.9 Troponin I 0.02 Total Protein 7.3 Albumin 3.7 Lipase 57 L Serum Alcohol 346 H 10/09/17 10/09/17 08:20 09:15 WBC RBC Hgb Hct MCV MCH MCHC RDW Plt Count MPV Neut % (Auto) Lymph % (Auto) [place] % (Auto) Eos % (Auto) Baso % (Auto) Neut # (Auto) Lymph # (Auto) [place] # (Auto) Eos # (Auto) Baso # (Auto) WBC Differential Differential Comment PT INR APTT Sodium Potassium Chloride Carbon Dioxide Anion Gap BUN Creatinine Estimated GFR POC Glucose 104 Random Glucose Calcium Magnesium Total Bilirubin AST ALT Alkaline Phosphatase Total Creatine Kinase 946 H CK-MB (CK-2) 7.8 H CK-MB (CK-2) % 0.8 Troponin I Less than 0.02 L Total Protein Albumin Lipase Serum Alcohol - Imaging Impressions Chest X-Ray 10/09/17 02:12 CONCLUSION: No acute cardiopulmonary abnormality is identified. Caprini VTE Risk Assessment Caprini VTE Risk Assessment: No/Low Risk (score <= 1) Caprini Risk Assessment Model: Point Value = 1 Point Value = 2 Point Value = 3 Point Value = 5 Age 41-60 Minor surgery BMI > 25 kg/m2 Swollen legs Varicose veins or History of unexplained or recurrent spontaneous Oral contraceptives or hormone replacement Sepsis (< 1 month) Serious lung disease, including pneumonia (< 1 month) Abnormal pulmonary function Acute myocardial infarction Congestive heart failure (< 1 month) History of inflammatory bowel disease Medical patient at bed rest Age 61-74 Arthroscopic surgery Major open surgery (> 45 min) Laparoscopic surgery (> 45 min) Malignancy Confined to bed (> 72 hours) Immobilizing plaster cast Central venous access Age >= 75 History of VTE Family history of VTE Factor V Leiden Prothrombin [id number] Lupus anticoagulant Anticardiolipin antibodies Elevated serum homocysteine Heparin-induced thrombocytopenia Other congenital or acquired thrombophilia Stroke (< 1 month) Elective arthroplasty Hip, pelvis, or leg fracture Acute spinal cord injury (< 1 month) Prophylaxis Regimen: Total Risk Factor Score Risk Level Prophylaxis Regimen 0-1 Low Early ambulation 2 Moderate Order ONE of the following: *Sequential Compression Device (SCD) *Heparin 5000 units SQ BID 3-4 Higher Order ONE of the following medications: *Heparin 5000 units SQ TID *Enoxaparin/Lovenox 40 mg SQ daily (WT < 150 kg, CrCl > 30 mL/min) *Enoxaparin/Lovenox 30 mg SQ daily (WT < 150 kg, CrCl > 10-29 mL/min) *Enoxaparin/Lovenox 30 mg SQ BID (WT < 150 kg, CrCl > 30 mL/min) AND/OR *Sequential Compression Device (SCD) 5 or more Highest Order ONE of the following medications: *Heparin 5000 units SQ TID (Preferred with Epidurals) *Enoxaparin/Lovenox 40 mg SQ daily (WT < 150 kg, CrCl > 30 mL/min) *Enoxaparin/Lovenox 30 mg SQ daily (WT < 150 kg, CrCl > 10-29 mL/min) *Enoxaparin/Lovenox 30 mg SQ BID (WT < 150 kg, CrCl > 30 mL/min) AND *Sequential Compression Device (SCD) Assessment and Plan - Assessment (1) ETOH abuse Code(s): F10.10 - Alcohol abuse, uncomplicated Status: Acute - Plan Patient is a 57-year-old male with past medical history of alcohol abuse, depression who came into the hospital for complaints of chest pain. Alcohol Abuse -[facility] protocol -Thiamine IV x1, thiamine, folic acid, multivitamin IV then PO daily -Ativan PRN Chest pain -Troponin 2 negative, chest x-ray negative -Possibly related to gastritis/esophagitis secondary to alcohol abuse -Maalox 1 dose now, pantoprazole -Continue to monitor Tachycardia -EKG reviewed sinus tachycardia and nonspecific ST elevation in inferior leads noted on the patient old EKG and remains unchanged, unchanged from prior EKG -This is possibly secondary to alcohol withdrawal. Ativan to be given. -Metoprolol 1 dose. Start propranolol. Mild rhabdomyolysis -CPK 999 -Increase IV fluids 200 mL's an hour -Trend CPK Depression Suicidal ideation -Psychiatry consulted -Monitor DVT prop SCDs Code Status: Full Code Discussed Condition With: Patient, nursing Discharge Planning: Plan to DC home when clinically improved. Possible transfer to psych.
--- NOTE | 2017-10-09 13:23 | ECG ---
Date Performed: 10/09/2017 Time Performed: 01:46:56 PTAGE: 57 years EKG: SINUS TACHYCARDIA ABNORMAL RHYTHM ECG Compared to PREVIOUS TRACING , there has been a slight increase in the sinus tachycardia, but no othe r significant serial change. Patient has minimal ST elevation in the inferior leads, but that was pre viously noted. PREVIOUS TRACIN07/22/2017 09.22.07 DOCTOR: Leonie Moreno Interpretating Date/Time 10/09/2017 13:21:58
--- NOTE | 2017-10-09 13:25 | ECG ---
Date Performed: 10/09/2017 Time Performed: 08:16:52 PTAGE: 57 years EKG: SINUS TACHYCARDIA NONSPECIFIC ST ELEVATION IN THE INFERIOR LEADS, NOTED ON THE PATIENT OLD EKGS, AND IT REMAINS UNCHANGED. THIS EKG IS UNCHANGED FROM PRIOR. THE SINUS TACHYCARDIA WAS PREVIOUSL Y NOTED. PREVIOUS TRACING : 10/09/2017 01.46 DOCTOR: Leonie Moreno Interpretating Date/Time 10/10/2017 06:29:16
[2017-10-09 13:53] LABS: Troponin I 0.02 ng/mL (0.02-0.05)
[2017-10-09 14:05] LABS: CKMB Percent 0.8 % (0.0-4.0); Creatine Kinase MB 6.8 ng/mL (0.5-3.6)
[2017-10-09] MEDS: Multivit/Folic Acid/Minerals Chewable Tablets CHEW SCH (14:43)
[2017-10-09] MEDS ORDERED: Metoprolol Tartrate 25 MG Tablet PO ONE (18:00)
[2017-10-09] MEDS ORDERED: Multivitamin Inj 10 ML, Thiamine Inj 100 MG, Folic Acid Inj 1 MG in Sodium Chloride 0.4... IV.SIG ONE (18:00)
[2017-10-09 19:47] LABS: Amphetamine Screen,Urine Neg (Neg); Barbiturate Screen,Urine Neg (Neg); Cannabinoid Screen,Urine Neg (Neg); Cocaine Screen,Urine Neg (Neg)
[2017-10-09 19:57] LABS: Opiate Screen,Urine Neg (Neg)
[2017-10-09] MEDS ORDERED: Metoprolol Tartrate 25 MG Tablet PO SCH (21:00)
--- NOTE | 2017-10-09 21:34 | ECG ---
Date Performed: 10/09/2017 Time Performed: 13:10:21 PTAGE: 57 years EKG: SINUS TACHYCARDIA WITH SHORT MI INTERVAL ABNORMAL RHYTHM ECG PREVIOUS TRACING : 10/09/2017 08.16 No significant change from previous tracing noted. DOCTOR: Tim Clements Interpretating Date/Time 10/09/2017 21:33:52
[2017-10-10] MEDS ORDERED: Ketorolac Inj 30 MG/ML (IVP) Vial IV.PUSH ONE (00:20)
[2017-10-10] MEDS: Sod Chloride 0.9% Inj 1,000 ML IV.CONT SCH ×3 (02:37→10:07)
[2017-10-10 03:26] VITALS: RESP 18
[2017-10-10 06:48] LABS: Baso # (Auto) 0.1 th/mm3 (0.0-0.2); Baso % (Auto) 0.8 % (0.0-2.0); Eos # (Auto) 0.2 th/mm3 (0.0-0.4); Eos % (Auto) 2.6 % (0.0-4.0); Hematocrit 40.4 % (39.0-51.0); Hemoglobin 13.6 gm/dL (13.0-17.0); Lymph # (Auto) 1.8 th/mm3 (1.0-4.8); Lymph % (Auto) 27.5 % (9.0-44.0); Mean Corpuscular HGB Conc 33.6 % (32.0-36.0); Mean Corpuscular Hemoglobin 32.5 pg (27.0-34.0); Mean Corpuscular Volume 96.9 fL (80.0-100.0); Mean Platelet Volume 8.1 fL (7.0-11.0); Mono # (Auto) 0.8 th/mm3 (0.0-0.9); Mono % (Auto) 11.8 % (0.0-8.0); Neut # (Auto) 3.8 th/mm3 (1.8-7.7); Neut % (Auto) 57.3 % (16.0-70.0); Platelet Count 166 th/mm3 (150-450); Red Blood Count 4.17 mil/mm3 (4.50-5.90); Red Cell Distribution Width 16.1 % (11.6-17.2); White Blood Count 6.7 th/mm3 (4.0-11.0)
[2017-10-10 06:56] LABS: Anion Gap 10 meq/L (5-15); Blood Urea Nitrogen 11 mg/dL (7-18); Calcium 8.1 mg/dL (8.5-10.1); Carbon Dioxide 25.1 meq/L (21.0-32.0); Chloride 104 meq/L (98-107); Glomerular Filtration Rate Greater Than 89 mL/min (>89); Glucose,Random 84 mg/dL (74-106); Potassium 3.5 meq/L (3.5-5.1); Sodium 139 meq/L (136-145)
[2017-10-10 07:00] LABS: Creatine Kinase 469 U/L (39-308)
[2017-10-10 07:17] LABS: CKMB Percent 0.4 % (0.0-4.0); Creatine Kinase MB 2.1 ng/mL (0.5-3.6)
[2017-10-10 07:26] VITALS: BP 145/69; TEMP 98.1
[2017-10-10] MEDS: Heparin - SQ 10,000 UNITS/ML Vial SQ SCH (07:50)
[2017-10-10] MEDS: LORazepam 1 MG Tablet PO PRN (09:48)
[2017-10-10] MEDS: Multivit/Folic Acid/Minerals Chewable Tablets CHEW SCH (09:48)
[2017-10-10] MEDS: Propranolol 10 MG Tablet PO SCH (09:48)
--- NOTE | 2017-10-10 09:54 | P.PN ---
Subjective Interval history: Follow-up for depression, chest pain, alcohol abuseno chest pain, no shortness of breath. Remains depressed, indicates that he has no family and wants help. No tremors noted, no agitation overnight. Sinus rhythm on monitor. CIWA score between 2 and 4. Physical Exam Vital signs: Vital Signs 10/09/17 12:00 10/09/17 13:01 10/09/17 16:00 Temperature 98.0 F 98.2 F Pulse Rate 118 H 115 H 111 H Respiratory Rate 18 18 Blood Pressure 161/76 H 168/90 H 177/81 H Pulse Oximetry 95 92 L 10/09/17 19:28 10/09/17 20:00 10/09/17 23:31 Temperature 98.7 F Pulse Rate 92 H 91 H Respiratory Rate 17 17 Blood Pressure 147/70 H 168/78 H Pulse Oximetry 94 L 97 97 10/10/17 03:25 10/10/17 07:23 10/10/17 08:00 Temperature 98.4 F 98.1 F Pulse Rate 83 82 80 Respiratory Rate 18 18 Blood Pressure 146/72 H 145/69 H Pulse Oximetry 98 95 10/10/17 08:30 Temperature Pulse Rate Respiratory Rate Blood Pressure Pulse Oximetry 95 Intake & Output 10/09/17 10/10/17 10/10/17 18:59 06:59 18:59 Intake Total 1401 / 1401 1561.2 / 1561.2 900 / 900 Balance 1401 / 1401 1561.2 / 1561.2 900 / 900 Weight 100.698 kg Intake: IV 601 / 601 1511.2 / 1511.2 900 / 900 NS Inj 1,000 ML @ 200 mls/hr IV 500 / 500 1000 / 1000 900 / 900 .CONT .Q5H [facility] Rx#:[id number] MVI-12 Inj 10 ML Thiamine Inj 511.2 / 511.2 100 MG Folvite Inj 1 MG In 1/2 Normal Saline Inj 500 ML @ 127. 8 mls/hr IV.SIG ONCE ONE Rx#: [id number] Thiamine Inj 100 MG In NS Inj 101 / 101 100 ML @ 100 mls/hr IV.SIG ONCE ONE Rx#:[id number] Oral 800 / 800 50 / 50 Other: # Voids 2 Date of Last Bowel Movement 10/09/17 10/09/17 # Incontinent Bowel Movements 3 Narrative: GENERAL: Well-nourished, well-developed patient in no apparent distress. SKIN: Warm and dry. HEAD: Atraumatic. Normocephalic. EYES: Pupils equal and round. No scleral icterus. No injection or drainage. ENT: No nasal bleeding or discharge. Mucous membranes pink and moist. NECK: Trachea midline. No JVD. CARDIOVASCULAR: Regular rate and rhythm. RESPIRATORY: No accessory muscle use. Clear to auscultation. Breath sounds equal bilaterally. GASTROINTESTINAL: Abdomen soft, non-tender, nondistended. Hepatic and splenic margins not palpable. MUSCULOSKELETAL: Extremities without clubbing, cyanosis, or edema. No obvious deformities. NEUROLOGICAL: Awake and alert and oriented 3. No obvious cranial nerve deficits. Motor grossly within normal limits. Five out of 5 muscle strength in the arms and legs. Normal speech. PSYCHIATRIC: Appropriate mood and affect; insight and judgment normal. Results - Labs CBC & Chem 7: 10/10/17 05:45 10/10/17 05:45 Laboratory Results - last 24 hr 10/09/17 10/09/17 10/10/17 13:09 18:44 05:45 WBC 6.7 RBC 4.17 L Hgb 13.6 Hct 40.4 MCV 96.9 MCH 32.5 MCHC 33.6 RDW 16.1 Plt Count 166 MPV 8.1 Neut % (Auto) 57.3 Lymph % (Auto) 27.5 [place] % (Auto) 11.8 H Eos % (Auto) 2.6 Baso % (Auto) 0.8 Neut # (Auto) 3.8 Lymph # (Auto) 1.8 [place] # (Auto) 0.8 Eos # (Auto) 0.2 Baso # (Auto) 0.1 WBC Differential . Differential Comment Auto diff final Sodium Potassium Chloride Carbon Dioxide Anion Gap BUN Creatinine Estimated GFR Random Glucose Calcium Total Creatine Kinase 868 H CK-MB (CK-2) 6.8 H CK-MB (CK-2) % 0.8 Troponin I 0.02 Urine Opiates Screen Neg Ur Barbiturates Screen Neg Ur Amphetamines Screen Neg U Benzodiazepines Scrn Neg Urine Cocaine Screen Neg U Cannabinoids Screen Neg 10/10/17 05:45 WBC RBC Hgb Hct MCV MCH MCHC RDW Plt Count MPV Neut % (Auto) Lymph % (Auto) [place] % (Auto) Eos % (Auto) Baso % (Auto) Neut # (Auto) Lymph # (Auto) [place] # (Auto) Eos # (Auto) Baso # (Auto) WBC Differential Differential Comment Sodium 139 Potassium 3.5 Chloride 104 Carbon Dioxide 25.1 Anion Gap 10 BUN 11 Creatinine 0.75 Estimated GFR Greater than 89 Random Glucose 84 Calcium 8.1 L Total Creatine Kinase 469 H CK-MB (CK-2) 2.1 CK-MB (CK-2) % 0.4 Troponin I Urine Opiates Screen Ur Barbiturates Screen Ur Amphetamines Screen U Benzodiazepines Scrn Urine Cocaine Screen U Cannabinoids Screen Assessment and Plan - Assessment (1) ETOH abuse Code(s): F10.10 - Alcohol abuse, uncomplicated Status: Acute (2) Depression Code(s): F32.9 - Major depressive disorder, single episode, unspecified Status : Acute - Plan Patient is a 57-year-old male with past medical history of alcohol abuse, depression who came into the hospital for complaints of chest pain. Alcohol Abuse no tremors, calm. -CIWA protocol -Thiamine IV x1, thiamine, folic acid, multivitamin IV then PO daily -Ativan PRN Chest pain resolved, trop x 3 negative, no evidence of ACS -Possibly related to gastritis/esophagitis secondary to alcohol abuse -Maalox 1 dose now, pantoprazole -Continue to monitor Tachycardia-resolved. Likely sec. to alcohol withdrawal. -EKG reviewed sinus tachycardia and nonspecific ST elevation in inferior leads noted on the patient old EKG and remains unchanged, unchanged from prior EKG -This is possibly secondary to alcohol withdrawal. Ativan to be given. -Continue propranolol. Mild rhabdomyolysis -CPK trending down, 469 now -Jan. IVF to 100/hr -Trend CPK Depression Suicidal ideation -Psychiatry input appreciated, d/w Vince. Ok for psych admission. DVT prop SCDs Chest pain ruled out, patient stable for discharge to psych inpatient. Discussed with RN, case management, psychiatry (2) Depression Qualifiers: Depression Type: unspecified Qualified Code(s): F32.9 - Major depressive disorder, single episode, unspecified
[2017-10-10 10:32] VITALS: PULSE 85; O2SAT 97
--- NOTE | 2017-10-10 14:06 | P.HPPSY ---
Provisional Diagnosis Admission Date: October 09, 2017 17:39 [place] I.: Adjustment disorder with depressed mood, history of depression, R/O alcohol induced mood disorder, alcohol use disorder Competence Certification of Person's Competence To Provide Express and Informed Consent I have personally examined Jhon Maradiaga, a person being served at [facility] on, October 10, 2017 1350. Express and informed consent means consent voluntarily given in writing, by a competent person, after sufficient explanation and disclosure of the subject matter involved to enable the person to make a knowing and willful decision without any element of force, fraud, deceit, duress, or other form of constraint or coercion. This person is 18 years of age or older, is not now known to be incompetent to consent to treatment with a guardian advocate, and does not have a health care surrogate or proxy currently making medical treatment decisions. I have found this person to be one of the following: [x] Competent to provide express and informed consent, as defined above, for voluntary admission to this facility and is competent to provide express and informed consent for treatment. He/she has the consistent capacity to make well reasoned, willful, and knowing decisions concerning his or her medical or mental health treatment. The person fully and consistently understands the purpose of the admission for examination/placement and is fully capable of personally exercising all rights assured under [place] Incompetent to provide express and informed consent to voluntary admission, and this is incompetent to provide express and informed consent to treatment. The person must be transferred to involuntary status and a petition for a guardian advocate filed with the Circuit Court. [] Refusing to provide express and informed consent to voluntary admission but is competent to provide express and informed consent for treatment. The person must be discharged or transferred to involuntary status. Form shall be completed within 24 hours of a person's arrival at the receiving facility and filed in the clinical record of each person: 1. Admitted on a voluntary basis 2. Permitted to provide express and informed consent to his/her own treatment 3. Allowed to transfer from involuntary to voluntary status 4. Prior to permitting a person to consent to his or her own treatment after having been previously found incompetent to consent to treatment. History of Present Illness Capacity: Has capacity History of Present Illness: The patient is a 57-year-old man, domiciled by himself in [place] , single, no kids, unemployed, supported by Social Security, with psychiatric history of bipolar disorder, alcohol use disorder, multiple psychiatric hospitalizations, [place] [facility] [place] [facility] 2 [place], he is noted psychotropics at the moment, with past medical history of lower back pain, who came into the hospital for complaints of chest pain. Patient seen and examined today. States that he has been depressed for more than a year now and has been drinking whiskey. Patient states that he wants to drink himself to , when asked if he has suicidal ideation he nods his head and states that he really wants to go. States that he used to be detoxed at the [facility] before and placed on Bupropion but was not really taking it at home. Tearful, He was asked again about planning to hurt himself and he answered "Yes." Chart was reviewed. On psychiatric evaluation I find a patient that is quite vulnerable, tearful, stating that he is very depressed and he has no reason to live for. The patient reports that he has been drinking alcohol every day, thinking about committing suicide quite often," getting close day by day of killing myself". Patient reports that he has no batty, no family, no friends, poor financial situation, and for this reason he has been feeling hopeless, helpless, worthless , increases ideation, with a plan of overdosing or jumping off a bridge. Patient is logical, goal-directed. No paranoia, no delusions, no ideas of reference, no agitation or aggressive behavior present. The patient is oriented 3. No withdrawal symptoms present at the moment. PPHX: Self-reported bipolar disorder, alcohol use disorder, multiple psychiatric hospitalizations, last hospitalization [place] [facility], the patient was prescribed with bupropion 150 mg twice daily. PMHx: Lower back pain Substance Hx: Daily use of alcohol, about a quarter of Vodka Family Hx: No family psychiatric history Social Hx: Patient was born and raised in [place], he lives alone in [place], his single, no kids, unemployed, supported by Social Security, his highest level of education is 12th grade - Inpatient Certification I certify that the inpatient services were ordered in accordance with Medicare regulations governing the order. This includes certification that hospital inpatient services are reasonable and necessary and in the case of services not specified as inpatient-only under 42 CFR 419.22(n), that they are appropriately provided as inpatient services in accordance to with the 2-midnight benchmark under 43 CFR 412.3(e) I certify that inpatient psychiatric hospital services are medically necessary. Evaluation and treatment and/or diagnostic testing are expected to improve the patient's condition. The patient needs on a daily basis, active treatment furnished directly by or requiring the supervision of inpatient psychiatric facility personnel. Estimated Total Length of Stay (Days): 2 Plans for Post Hospital Care: Home Review of Systems All other systems reviewed negative except as stated in HPI Cardiovascular: Reports chest pain Psychiatric: Reports depression, Reports thoughts of hurting/killing yourself PMFSH - History History Provided By: Patient - Medical History Medical History: Medical History (Last Updated 10/13/17 @ 16:57 by TIERRA Andrew) S/P ORIF (open reduction internal fixation) fracture (Acute) Chronic back pain (Acute) DDD (degenerative disc disease), lumbar (Acute) History of lower leg fracture (Acute) Alcohol abuse (Acute) Depression (Acute) Femur fracture, right Patella fracture - Family History Family History: Family History (Last Reviewed 10/13/17 @ 16:37 by TIERRA Andrew) Mother Heart disease Grandparent No problems noted. Father Heart disease - Tobacco History Second Hand Smoke Exposure: Yes Tobacco Use In Past 30 Days: Yes Smoking Status: Current every day smoker Tobacco Type: Cigarettes - Alcohol History How Often Do You Have a Drink Containing Alcohol: 4 or more times a week - Substance Use History Substance History: No History of Abuse - Immunization History Tetanus Immunization: >5 Years Hx Influenza Vaccine This Season: No Medications and Allergies Active Medications: Active Medications Duloxetine HCl (Cymbalta) 30 mg PO DAILY JENNIFER Allergies Allergy/AdvReac Type Severity Reaction Status Date / Time No Known Allergies Allergy Unverified 07/21/17 22:00 Results - Labs CBC & Chem 7: 10/10/17 05:45 10/10/17 05:45 Labs: Laboratory Results - last 24 hr 10/09/17 10/09/17 10/10/17 13:09 18:44 05:45 WBC 6.7 RBC 4.17 L Hgb 13.6 Hct 40.4 MCV 96.9 MCH 32.5 MCHC 33.6 RDW 16.1 Plt Count 166 MPV 8.1 Neut % (Auto) 57.3 Lymph % (Auto) 27.5 Oliver % (Auto) 11.8 H Eos % (Auto) 2.6 Baso % (Auto) 0.8 Neut # (Auto) 3.8 Lymph # (Auto) 1.8 Oliver # (Auto) 0.8 Eos # (Auto) 0.2 Baso # (Auto) 0.1 WBC Differential . Differential Comment Auto diff final Sodium Potassium Chloride Carbon Dioxide Anion Gap BUN Creatinine Estimated GFR Random Glucose Calcium Total Creatine Kinase 868 H CK-MB (CK-2) 6.8 H CK-MB (CK-2) % 0.8 Troponin I 0.02 Urine Opiates Screen Neg Ur Barbiturates Screen Neg Ur Amphetamines Screen Neg U Benzodiazepines Scrn Neg Urine Cocaine Screen Neg U Cannabinoids Screen Neg 10/10/17 05:45 WBC RBC Hgb Hct MCV MCH MCHC RDW Plt Count MPV Neut % (Auto) Lymph % (Auto) Oliver % (Auto) Eos % (Auto) Baso % (Auto) Neut # (Auto) Lymph # (Auto) Oliver # (Auto) Eos # (Auto) Baso # (Auto) WBC Differential Differential Comment Sodium 139 Potassium 3.5 Chloride 104 Carbon Dioxide 25.1 Anion Gap 10 BUN 11 Creatinine 0.75 Estimated GFR Greater than 89 Random Glucose 84 Calcium 8.1 L Total Creatine Kinase 469 H CK-MB (CK-2) 2.1 CK-MB (CK-2) % 0.4 Troponin I Urine Opiates Screen Ur Barbiturates Screen Ur Amphetamines Screen U Benzodiazepines Scrn Urine Cocaine Screen U Cannabinoids Screen Exam Vital signs: Vital Signs 10/09/17 16:00 10/09/17 19:28 10/09/17 20:00 Temperature 98.2 F Pulse Rate 111 H 92 H Respiratory Rate 18 17 Blood Pressure 177/81 H 147/70 H Pulse Oximetry 92 L 94 L 97 10/09/17 23:31 10/10/17 03:25 10/10/17 07:23 Temperature 98.7 F 98.4 F 98.1 F Pulse Rate 91 H 83 82 Respiratory Rate 17 18 18 Blood Pressure 168/78 H 146/72 H 145/69 H Pulse Oximetry 97 98 95 10/10/17 08:00 09/04/18 08:30 10/10/17 09:00 Temperature 98.1 F Pulse Rate 80 85 Respiratory Rate 18 Blood Pressure Pulse Oximetry 95 97 Intake & Output 10/09/17 10/10/17 10/10/17 18:59 06:59 18:59 Intake Total 1401 / 1401 1561.2 / 1561.2 1000 / 1000 Balance 1401 / 1401 1561.2 / 1561.2 1000 / 1000 Weight 100.698 kg Intake: IV 601 / 601 1511.2 / 1511.2 1000 / 1000 NS Inj 1,000 ML @ 200 mls/hr IV 500 / 500 1000 / 1000 1000 / 1000 .CONT .Q5H JENNIFER Rx#:[id number] MVI-12 Inj 10 ML Thiamine Inj 511.2 / 511.2 100 MG Folvite Inj 1 MG In 1/2 Normal Saline Inj 500 ML @ 127. 8 mls/hr IV.SIG ONCE ONE Rx#: [id number] Thiamine Inj 100 MG In NS Inj 101 / 101 100 ML @ 100 mls/hr IV.SIG ONCE ONE Rx#:[id number] Oral 800 / 800 50 / 50 Other: # Voids 2 Date of Last Bowel Movement 10/09/17 10/09/17 # Incontinent Bowel Movements 3 Mental Status Examination Appearance: Appropriate Consciousness: Alert Orientation: x4 Motor Activity: Normal gait Speech: Unremarkable Language: Adequate Fund of Knowledge: Adequate Attention and Concentration: Adequate Memory: Unremarkable Mood: Appropriate Affect: Appropriate Thought Process & Associations: Intact Thought Content: Appropriate Hallucination Type: None Delusion Type: None Suicidal Ideation: No Suicidal Plan: No Suicidal Intention: No Homicidal Ideation: No Homicidal Plan: No Homicidal Intention: No Insight: Adequate Judgment: Adequate Assessment and Plan - Assessment (1) Acute adjustment disorder Code(s): F43.20 - Adjustment disorder, unspecified Status: Acute (2) Acute adjustment disorder Code(s): F43.20 - Adjustment disorder, unspecified Status: Acute - Plan Plan: Estimated LOS: [] days On psychiatric evaluation today the patient presents with symptomatology of depression including anhedonia, hopelessness, helplessness, worthlessness, increased alcohol use, suicidal ideation in the context of persistent alcohol use, poor family and social support. The patient has history of bipolar disorder, he has being in Wellbutrin 150 mg twice daily, he has multiple psychiatric hospitalizations, he was hospitalized 2 months ago in the [facility], has suicidal attempts and at this moment he has an increased risk of danger to self and he needs psychiatric admission for stabilization. Discontinue Wellbutrin given the elevated risk of seizures with alcoholism. Start Cymbalta 30 mg daily for pain and depression. [facility] protocol. Patient will sign voluntary admission. Justification for Continued Inpatient Stay: Patient will be admitted for stabilization and safety.
== END 2017-10-10 12:46 ==
LOC: NEDA 01:19 → NEPC 01:19 → NEDA 08:31 → NEPFCDU 08:33
PROVIDERS: ADMIT Hospitalist; ATTEND Hospitalist

== ENCOUNTER 2017-10-10 12:12 | Inpatient (IN) ==
[2017-10-10] MEDS ORDERED: Haloperidol Inj 5 MG/ML Ampul IV.PUSH PRN (12:48)
[2017-10-10] MEDS ORDERED: Aluminum/Magnesium/Simethacone Susp 30 ML UDC PO PRN (12:48)
[2017-10-10] MEDS ORDERED: Bisacodyl 10 MG Supp RECTAL PRN (12:48)
[2017-10-10] MEDS: Propranolol 10 MG Tablet PO SCH ×2 (16:18→18:51)
[2017-10-10] MEDS: LORazepam 1 MG Tablet PO PRN (20:46)
[2017-10-10] MEDS: Senna/Docusate Sodium 8.6/50 MG Tablet PO SCH (20:46)
[2017-10-11] MEDS: Senna/Docusate Sodium 8.6/50 MG Tablet PO SCH (08:14)
[2017-10-11] MEDS: Propranolol 10 MG Tablet PO SCH ×2 (08:14→13:15)
[2017-10-11 10:05] LABS: Anion Gap 10 meq/L (5-15); Calcium 8.8 mg/dL (8.5-10.1); Carbon Dioxide 25.8 meq/L (21.0-32.0); Chloride 105 meq/L (98-107); Cholesterol 175 mg/dL (120-200); Glomerular Filtration Rate Greater Than 89 mL/min (>89); Glucose,Random 119 mg/dL (74-106); Potassium 3.3 meq/L (3.5-5.1); Sodium 141 meq/L (136-145); Triglycerides 149 mg/dL (42-150)
[2017-10-11 10:12] LABS: Blood Urea Nitrogen 9 mg/dL (7-18); Chol/HDL Ratio 2.83 Ratio; HDL Cholesterol 61.7 mg/dL (40.0-60.0); LDL Cholesterol,Calculated 84 mg/dL (0-99)
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
[2017-10-11] MEDS: Venlafaxine XR 75 MG Capsule PO SCH (13:24)
[2017-10-11] MEDS: Folic Acid 1 MG Tablet PO SCH (13:24)
[2017-10-11 15:25] LABS: Hemoglobin A1c 5.5 % (4.3-6.0)
[2017-10-11] MEDS ORDERED: Acetaminophen 325 MG Tablet PO PRN (15:34)
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
[2017-10-11] MEDS: Melatonin 5 MG Tablet PO PRN (21:38)
--- NOTE | 2017-10-11 22:49 | XR ---
EXAM DATE: 10/11/2017 10:38 PM EDT AGE/SEX: 57 years / Male INDICATIONS: Lower back pain. No recent injuries. CLINICAL DATA: This is the patient's initial encounter. Patient reports that signs and symptoms have been present for 2 days and indicates a pain score of 8/10. MEDICAL/SURGICAL HISTORY: None. None. COMPARISON: No prior exams available for comparison. FINDINGS: There is moderate compression deformity involving L1 of indeterminate age. There is mild compression deformity involving L3 also of indeterminate age. Mild compression deformity involving L5 is also not ed of indeterminate age. Grade I-II anterolisthesis of L4 in relation to L5 is noted. Significant dis c space narrowing is noted at L4-5. CONCLUSION: 1. Moderate compression deformity involving L1 as well as mild compression deformities involving L3 and L5 of indeterminate ages. 2. Grade I-II anterolisthesis of L4 in relation to L5 is noted. 3. Severe degenerative disc disease at L4-5. Electronically signed by: Demar Cantor MD 10/11/2017 10:48 PM EDT
[2017-10-12] MEDS: Venlafaxine XR 75 MG Capsule PO SCH (08:54)
[2017-10-12 08:56] LABS: Albumin 3.6 g/dL (3.4-5.0); Anion Gap 10 meq/L (5-15); Aspartate Aminotransferase 81 U/L (15-37); Blood Urea Nitrogen 13 mg/dL (7-18); Calcium 9.3 mg/dL (8.5-10.1); Carbon Dioxide 23.6 meq/L (21.0-32.0); Chloride 104 meq/L (98-107); Glomerular Filtration Rate 80 mL/min (>89); Glucose,Random 143 mg/dL (74-106); Potassium 4.1 meq/L (3.5-5.1); Sodium 138 meq/L (136-145)
[2017-10-12] MEDS: Propranolol 10 MG Tablet PO SCH ×4 (08:56→18:32)
[2017-10-12] MEDS: Folic Acid 1 MG Tablet PO SCH (08:56)
[2017-10-12 08:57] LABS: Alanine Aminotransferase 51 U/L (12-78)
[2017-10-12 09:06] LABS: Alkaline Phosphatase 126 U/L (45-117); Total Protein 7.7 g/dL (6.4-8.2)
[2017-10-12 09:08] LABS: Creatine Kinase 87 U/L (39-308)
--- NOTE | 2017-10-12 11:04 | P.PN ---
Subjective Interval history: Follow-up on patient with chronic back pain. Patient resting in bed. Appears comfortable. No acute medical complaints. Discussed with nursing staff, no overnight events noted. Physical Exam Vital signs: Vital Signs 10/12/17 06:18 Temperature 97.8 F Pulse Rate 71 Respiratory Rate 17 Blood Pressure 149/84 H Intake & Output 10/11/17 10/12/17 10/12/17 18:59 06:59 18:59 Weight 118.8 kg Narrative: GENERAL: Well-developed well-nourished overweight male patient in no acute distress. Resting comfortably. SKIN: Warm and dry. +well healed surgical incision on right thigh and knee HEAD: Atraumatic. Normocephalic. EYES: Pupils equal and round. No scleral icterus. No injection or drainage. ENT: No nasal bleeding or discharge. Mucous membranes pink and moist. NECK: Trachea midline. No JVD. CARDIOVASCULAR: Regular rate and rhythm. RESPIRATORY: No accessory muscle use. Clear to auscultation. Breath sounds equal bilaterally. GASTROINTESTINAL: Abdomen soft, non-tender, nondistended. MUSCULOSKELETAL: Extremities without clubbing, cyanosis, or edema. No obvious deformities. Limited ROM in all planes the lumbar spine. +SLR bilaterally. Right leg shortened in comparison to the left approximately 1 inch NEUROLOGICAL: Awake and alert. No obvious cranial nerve deficits. Motor grossly within normal limits. Able to move all extremities spontaneously. Normal speech. PSYCHIATRIC: Calm and cooperative. Depressed affect.; insight and judgment poor. Results - Labs CBC & Chem 7: 10/12/17 08:02 Laboratory Results - last 24 hr 10/11/17 10/12/17 08:32 08:02 Sodium 138 Potassium 4.1 D Chloride 104 Carbon Dioxide 23.6 Anion Gap 10 BUN 13 Creatinine 0.97 Estimated GFR 80 L Random Glucose 143 H Hemoglobin A1c 5.5 Calcium 9.3 Total Bilirubin 0.7 AST 81 H ALT 51 Alkaline Phosphatase 126 H Total Creatine Kinase 87 Total Protein 7.7 Albumin 3.6 TSH 3.320 - Imaging Impressions Lumbar Spine X-Ray 10/11/17 00:00 CONCLUSION: 1. Moderate compression deformity involving L1 as well as mild compression deformities involving L3 and L5 of indeterminate ages. 2. Grade I-II anterolisthesis of L4 in relation to L5 is noted. 3. Severe degenerative disc disease at L4-5. Assessment and Plan - Plan 57-year-old male with a history of alcohol abuse admitted to inpatient psychiatric unit for suicidal ideation Depression Anxiety Suicidal ideation -Management per psychiatric team Alcohol abuse serum EtOH 346 on admission -[facility] protocol -thiamine/folic acid/MVI daily -Monitor for signs of withdrawal -Seizure precautions -Discussed alcohol cessation Tachycardia, possibly secondary to alcohol withdrawal -Improved on propanolol, continue -Continue to monitor heart rate Chronic back pain Shortened right limb s/p fracture and ORIF in distant past DDD lumbar spine X-ray lumbar spine reveals moderate compression deformity at L1, mild compression deformity of L3 and L5, severe degenerative changes at L4-5 -Continue with PT -recommending right shoe lift. Patient would benefit from follow-up with benefits analyst as outpatient. -OT eval/tx -MR lumbar spine ordered for further evaluation -Tramadol prn pain Chest pain, ruled out ACS ?GI etiology given history of excessive alcohol abuse, recurrent nausea/ vomiting -Continue on PPI -monitor Hypertension -Start on lisinopril 5 mg daily -Continue to monitor BP and adjust treatment accordingly Hypokalemia K 3.3 -resolved s/p repletion -monitor K level as indicated Rhabdomyolysis CPK now normal -Encourage fluid intake Transaminitis, likely secondary to alcohol use LFTs improving -Avoid hepatotoxic agent DVT prophylaxis -Patient is ambulatory Code Status: FULL
--- NOTE | 2017-10-12 13:28 | P.PNPSY ---
Subjective Remarks: Patient seen and examined with counselor. Chart reviewed. Patient has received 6mg PO Ativan in last 24 hours. Case discussed with nursing staff. On my examination today, the patient complains of poor sleep. He says that he has been on trazodone up to 300 mg in the past and also Seroquel 200 mg at night for sleep. He would like to resume a scheduled sleeping medication now. He complains of ongoing anxiety and exhibits a tendency to catastrophize. Mood remains down but affect is a little bit more reactive today. Denies suicidal ideation presently but says that he was having some thoughts of self-harm last night. No urge to hurt self on unit. No side effects from medications. No new physical complaints. Vital Signs Temp Pulse Resp BP 10/12/17 06:18 97.8 F 71 17 149/84 H Intake and Output 10/12/17 10/12/17 10/12/17 06:59 14:59 22:59 Other: Weight 118.8 kg Impressions Lumbar Spine X-Ray 10/11/17 00:00 CONCLUSION: 1. Moderate compression deformity involving L1 as well as mild compression deformities involving L3 and L5 of indeterminate ages. 2. Grade I-II anterolisthesis of L4 in relation to L5 is noted. 3. Severe degenerative disc disease at L4-5. Review of Systems All other systems reviewed negative except as stated in HPI Mental Status Examination Appearance: Appropriate Consciousness: Alert Orientation: x4 Motor Activity: Other (No signs of withdrawal noted. No other motor abnormalities noted.) Speech: Unremarkable Language: Adequate Fund of Knowledge: Adequate Attention and Concentration: Adequate Memory: Unremarkable (Grossly intact on clinical exam) Mood: Other (Dysphoric) Affect: Other (More reactive today) Thought Process & Associations: Intact Thought Content: Appropriate Hallucination Type: None Delusion Type: None Suicidal Ideation: No Suicidal Plan: No Suicidal Intention: No Homicidal Ideation: No Homicidal Plan: No Homicidal Intention: No Insight: Fair Judgment: Impulsive Assessment and Plan - Assessment (1) Adjustment disorder with depressed mood Code(s): F43.21 - Adjustment disorder with depressed mood Status: Acute (2) Alcohol use disorder, moderate, dependence Code(s): F10.20 - Alcohol dependence, uncomplicated Status: Acute - Plan Plan: Add trazodone 100 mg at bedtime for sleep. R/B/A for medications discussed with patient. In particular, I have discussed with him the risk of priapism and also discussed with him the concern of combining this medication with patient's Effexor (e.g. potential risk of Serotonin Syndrome). Continue Effexor as ordered. Hospitalist input noted and appreciated. Follow-up MRI of the lumbar spine. Continue other medications and care as ordered. Justification for Continued Inpatient Stay: Medication changes. Risk for decompensation and less restrictive environment. Monitoring for impairment in safety. Discharge Planning: Pending psychiatric stabilization. Request Healthcare Surrogate/Guardian Advocate?: No
[2017-10-12] MEDS: Lisinopril 5 MG Tablet PO SCH (15:58)
--- NOTE | 2017-10-12 18:07 | MR ---
EXAM DATE: 10/12/2017 5:56 PM EDT AGE/SEX: 57 years / Male INDICATIONS: Fracture. CLINICAL DATA: This is the patient's initial encounter. Patient reports that signs and symptoms have been present for 2 days and indicates a pain score of 6/10. MEDICAL/SURGICAL HISTORY: Hypertension. Total knee replacement, right. COMPARISON: No prior exams available for comparison. TECHNIQUE: Multiplanar, multisequence MRI of the lumbar spine was performed without contrast. Patie nt was scanned in a sitting position; neutral, flexion, and extension scans were performed in the sa gittal plane. FINDINGS: Vertebra: There is a wedge-shaped compression deformity involving the L1 vertebral body with diffuse marrow edema. No evidence of retropulsion of the osseous fragments. There is loss of greater than 50 % mid and anterior vertebral body height. There is 9 mm of anterolisthesis of L4 and L5 secondary to pars defects and severe degenerative disc changes. Conus: Normal level and configuration. T12-L1: The thecal sac has a normal diameter. No evidence of disc bulge or protrusion. The neural foramina are patent bilaterally. L1-L2: Broad-based disc bulge. Moderate facet degenerative change. No significant spinal canal narr owing. Disc material extends into the neural foramina, right greater than left contributing to severe right-sided neural foraminal narrowing and moderate on the left. L2-L3: Broad-based disc protrusion and moderate to severe facet degenerative changes. Mild central canal narrowing. Mild bilateral neuroforaminal narrowing. There is 8 minimal concavity involving the superior endplate of L3 associated with no significant marrow edema consistent with likely an old end plate disc herniation. L3-L4: Severe facet degenerative changes. No significant spinal canal or neuroforaminal narrowing. L4-L5: Severe disc desiccation and disc space narrowing with bilateral pars defects and anterolisth esis of L4 and L5. The uncovered disc as well as the facet degenerative changes contribute to moderat e central canal stenosis. There is severe bilateral neuroforaminal stenosis. L5-S1: Posterior central disc bulge. Moderate right-sided facet degenerative change. No significant spinal canal or neuroforaminal narrowing. CONCLUSION: 1. New insufficiency fracture involving the L1 vertebral body with loss of approximately 50% mid and anterior vertebral body height. No evidence of retropulsion of osseous fragments and no evidence of epidural hematoma. 2. Degenerative changes of the lumbar spine as noted above. There is anterolisthesis of L4 and L5 se condary to both bilateral pars defects as well as degenerative disc changes resulting in severe bilat eral neuroforaminal stenosis. Electronically signed by: Samantha Klein MD 10/12/2017 6:06 PM EDT
[2017-10-12] MEDS ORDERED: traZODone 100 MG Tablet PO SCH (21:00)
[2017-10-13] MEDS: Venlafaxine XR 75 MG Capsule PO SCH (08:42)
[2017-10-13] MEDS: Folic Acid 1 MG Tablet PO SCH (08:42)
[2017-10-13] MEDS: Lisinopril 5 MG Tablet PO SCH (08:42)
[2017-10-13] MEDS: Propranolol 10 MG Tablet PO SCH ×2 (08:42→21:10)
[2017-10-13] MEDS: LORazepam 1 MG Tablet PO PRN (08:52)
--- NOTE | 2017-10-13 12:33 | P.PNPSY ---
Subjective Remarks: Patient seen and examined with counselor and nurse. Chart reviewed. Case discussed with nursing staff. Case discussed in treatment team. Counselor relates that patient seems to have a certain fatalism that his past experiences have made an indelible ross on his personality such that "nobody can help fix me." On my exam, patient presents as dysphoric. He complains of ongoing low mood. He continues to complain of poor sleep and would like to titrate his trazodone. He continues to endorse suicidal ideation and says that he is not having any thoughts of hurting himself on the unit "today." He denies side effects from medications. Continues to complain of chronic back pain. Vital Signs Temp Pulse BP Pulse Ox 10/13/17 05:58 97.8 F 75 118/60 94 L Intake and Output 10/12/17 10/13/17 10/13/17 22:59 06:59 14:59 Intake Total 240 / 240 Balance 240 / 240 Intake: Oral 240 / 240 Labs reviewed. No new labs. Impressions Lumbar Spine MRI 10/12/17 00:00 CONCLUSION: 1. New insufficiency fracture involving the L1 vertebral body with loss of approximately 50% mid and anterior vertebral body height. No evidence of retropulsion of osseous fragments and no evidence of epidural hematoma. 2. Degenerative changes of the lumbar spine as noted above. There is anterolisthesis of L4 and L5 secondary to both bilateral pars defects as well as degenerative disc changes resulting in severe bilateral neuroforaminal stenosis. Review of Systems All other systems reviewed negative except as stated in HPI Mental Status Examination Appearance: Appropriate Consciousness: Alert Orientation: x4 Motor Activity: Other (No motor abnormalities noted. No signs of withdrawal noted.) Speech: Unremarkable Language: Adequate Fund of Knowledge: Adequate Attention and Concentration: Adequate Memory: Unremarkable (Grossly intact on clinical exam) Mood: Other (Remains depressed) Affect: Other (Restricted) Thought Process & Associations: Intact Thought Content: Appropriate Hallucination Type: None Delusion Type: None Suicidal Ideation: Yes Suicidal Plan: No Suicidal Intention: No Homicidal Ideation: No Homicidal Plan: No Homicidal Intention: No Insight: Fair Judgment: Impulsive Assessment and Plan - Assessment (1) Adjustment disorder with depressed mood Code(s): F43.21 - Adjustment disorder with depressed mood Status: Acute (2) Alcohol use disorder, moderate, dependence Code(s): F10.20 - Alcohol dependence, uncomplicated Status: Acute - Plan Plan: Titrate trazodone to 200 mg at bedtime for sleep. Continue Effexor as ordered but to consider titrating this medication over the weekend to target low mood. Continue to monitor on the inpatient unit. Await hospitalist input regarding MRI findings. Continue to monitor on inpatient unit. Continue other medications and care as ordered. Justification for Continued Inpatient Stay: Medication changes. Monitoring for impairment in safety. Complicating conditions. High risk for decompensation in less restrictive environment. Discharge Planning: Pending psychiatric stabilization. Request Healthcare Surrogate/Guardian Advocate?: No
--- NOTE | 2017-10-13 13:36 | P.PN ---
Subjective Interval history: Follow-up on patient with acute on chronic back pain. Patient states that he fell recently and has been experiencing increase in his chronic back pain. MRI imaging a lumbar spine reveals diffuse degenerative changes throughout the lumbar spine, old compression fracture of L3 and a new insufficiency fracture involving L1. Patient is asking for a wheelchair. He denies any chest pain or shortness of breath. He denies any fever or chills. Physical Exam Vital signs: Vital Signs 10/13/17 05:58 Temperature 97.8 F Pulse Rate 75 Blood Pressure 118/60 Pulse Oximetry 94 L Intake & Output 10/12/17 10/13/17 10/13/17 18:59 06:59 18:59 Intake Total 240 / 240 Balance 240 / 240 Intake: Oral 240 / 240 Narrative: GENERAL: Well-developed well-nourished overweight male patient in no acute distress. Resting comfortably in his bed. Awake and alert. SKIN: Warm and dry. +well healed surgical incision on right thigh and knee HEAD: Atraumatic. Normocephalic. EYES: Pupils equal and round. No scleral icterus. No injection or drainage. ENT: No nasal bleeding or discharge. Mucous membranes pink and moist. NECK: Trachea midline. CARDIOVASCULAR: Regular rate and rhythm. RESPIRATORY: No accessory muscle use. Clear to auscultation. Breath sounds equal bilaterally. GASTROINTESTINAL: Abdomen soft, non-tender, nondistended. MUSCULOSKELETAL: Extremities without clubbing, cyanosis, or edema. No obvious deformities. Limited ROM in all planes the lumbar spine. +SLR bilaterally. Right leg shortened in comparison to the left approximately 1 inch NEUROLOGICAL: Awake and alert. No obvious cranial nerve deficits. Motor grossly within normal limits. Able to move all extremities spontaneously. Normal speech. PSYCHIATRIC: Calm and cooperative. Depressed affect.; insight and judgment poor. Results - Labs CBC & Chem 7: 10/12/17 08:02 - Imaging Impressions Lumbar Spine MRI 10/12/17 00:00 CONCLUSION: 1. New insufficiency fracture involving the L1 vertebral body with loss of approximately 50% mid and anterior vertebral body height. No evidence of retropulsion of osseous fragments and no evidence of epidural hematoma. 2. Degenerative changes of the lumbar spine as noted above. There is anterolisthesis of L4 and L5 secondary to both bilateral pars defects as well as degenerative disc changes resulting in severe bilateral neuroforaminal stenosis. Assessment and Plan - Plan 57-year-old male with a history of alcohol abuse admitted to inpatient psychiatric unit for suicidal ideation Depression Anxiety Suicidal ideation -Management per psychiatric team Alcohol abuse serum EtOH 346 on admission -[facility] protocol -thiamine/folic acid/MVI daily -Monitor for signs of withdrawal -Seizure precautions -Discussed alcohol cessation Tachycardia, possibly secondary to alcohol withdrawal, improved -Improved on propanolol, continue -Continue to monitor heart rate Acute on chronic back pain Shortened right limb s/p fracture and ORIF in distant past DDD lumbar spine, multiple levels Lumbar stenosis Acute fracture L1 Old fracture L3 and L5 X-ray lumbar spine reveals moderate compression deformity at L1, mild compression deformity of L3 and L5, severe degenerative changes at L4-5 MRI lumbar spine reveals new insufficiency fracture involving L1 with 50% loss of height, degenerative changes noted throughout the lumbar spine, old compression deformity L3 and lateral pars defects and anterior listhesis L4 on L5 with facet arthropathy resulting in moderate central canal stenosis and severe bilateral foraminal stenosis -Continue with PT -recommending right shoe lift. Patient would benefit from follow-up with belting and webbing inspector as outpatient. Wheeled walker ordered. -obtain Vitamin D level. Start on Vitamin D supplementation. -Obtain MR thoracic spine to assess for additional compression deformities -Consult Orthopedic service, appreciate assistance -Tramadol prn pain Chest pain, ruled out ACS ?GI etiology given history of excessive alcohol abuse, recurrent nausea/ vomiting -Continue on PPI -monitor Hypertension BP improved -continue on lisinopril 5 mg daily -Continue to monitor BP and adjust treatment accordingly Hypokalemia K 3.3 -resolved s/p repletion -monitor K level as indicated Rhabdomyolysis CPK now normal -Encourage fluid intake Transaminitis, likely secondary to alcohol use LFTs improving -Avoid hepatotoxic agents -complete alcohol cessation DVT prophylaxis -Patient is ambulatory Code Status: FULL Discussed Condition With: patient, nursing staff, Dr. Blake
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
--- NOTE | 2017-10-13 19:12 | MR ---
EXAM DATE: 10/13/2017 7:05 PM EDT AGE/SEX: 57 years / Male INDICATIONS: . Low back pain. CLINICAL DATA: This is the patient's initial encounter. Patient reports that signs and symptoms have been present for 1 day and indicates a pain score of 0/10. MEDICAL/SURGICAL HISTORY: Hypertension. . Right knee surgery. COMPARISON: No prior exams available for comparison. TECHNIQUE: Multiplanar, multisequence MRI of the thoracic spine was performed. FINDINGS: Vertebrae: The thoracic vertebral bodies are normal in height and marrow intensity. There is no acut e compression fracture involving the thoracic spine. There is an acute compression deformity involvin g the L1 vertebral body which is described in detail in the MRI of the lumbar spine report done the . Alignment: Normal. Cord: Normal position and configuration. T1-T2: The thecal sac has a normal diameter. No evidence of disc bulge or protrusion. T2-T3: The thecal sac has a normal diameter. No evidence of disc bulge or protrusion. T3-T4: The thecal sac has a normal diameter. No evidence of disc bulge or protrusion. T4-T5: The thecal sac has a normal diameter. No evidence of disc bulge or protrusion. T5-T6: Tiny right paracentral disc bulge is noted which results in no spinal stenosis or neuroforami nal narrowing. T6-T7: Tiny left paracentral disc bulge is noted resulting in no spinal stenosis or neuroforaminal n arrowing. T7-T8: Tiny left paracentral disc bulge is noted resulting in no spinal stenosis or neuroforaminal n arrowing. T8-T9: The thecal sac has a normal diameter. No evidence of disc bulge or protrusion. T9-T10: Tiny central disc bulge is noted resulting in no spinal stenosis or neuroforaminal narrowing . T10-T11: The thecal sac has a normal diameter. No evidence of disc bulge or protrusion. T11-T12: The thecal sac has a normal diameter. No evidence of disc bulge or protrusion. T12-L1: The thecal sac has a normal diameter. No evidence of disc bulge or protrusion. CONCLUSION: 1. No acute fracture or marrow infiltration of the thoracic spine. 2. Tiny right paracentral disc bulge at C5-6, tiny left paracentral disc bulges at T6-7 and T7-8 and tiny central disc bulge at T9-10 which result in no spinal stenosis or neuroforaminal narrowing. 3. Mild degenerative changes throughout the thoracic spine. 4. Acute compression deformity involving the L1 vertebral body which is described in detail in the M [facility] of the lumbar spine report done the previous day. Electronically signed by: Demar Cantor MD 10/13/2017 7:11 PM EDT
[2017-10-13] MEDS: traZODone 100 MG Tablet PO SCH (20:44)
[2017-10-13] MEDS: Melatonin 5 MG Tablet PO PRN (21:11)
[2017-10-14] MEDS: Lisinopril 5 MG Tablet PO SCH (08:02)
[2017-10-14] MEDS: Venlafaxine XR 75 MG Capsule PO SCH (08:02)
[2017-10-14] MEDS: Propranolol 10 MG Tablet PO SCH ×4 (08:02→21:01)
[2017-10-14] MEDS: Folic Acid 1 MG Tablet PO SCH (08:02)
--- NOTE | 2017-10-14 12:33 | P.PNPSY ---
Subjective Remarks: Reviewed electronic medical records and discussed case with staff. Follow-up was conducted in patient's room with MAXIMINO Boswell present. He continues to complain of pain, states that he was "up all night". Reports that his appetite is "not bad". Denies suicidal ideation today. He denies any side effects from the medications. Mental Status Examination Appearance: Appropriate Consciousness: Alert Orientation: x4 Motor Activity: Other (No motor abnormalities noted. No signs of withdrawal noted.) Speech: Unremarkable Language: Adequate Fund of Knowledge: Adequate Attention and Concentration: Adequate Memory: Unremarkable (Grossly intact on clinical exam) Mood: Other (Remains depressed) Affect: Other (Restricted) Thought Process & Associations: Intact Thought Content: Appropriate Hallucination Type: None Delusion Type: None Suicidal Ideation: Yes Suicidal Plan: No Suicidal Intention: No Homicidal Ideation: No Homicidal Plan: No Homicidal Intention: No Insight: Fair Judgment: Impulsive Assessment and Plan - Assessment (1) Adjustment disorder with depressed mood Code(s): F43.21 - Adjustment disorder with depressed mood Status: Acute - Plan Plan: Patient will be reevaluated Monday by the attending psychiatrist. Continue with current treatment plan. Justification for Continued Inpatient Stay: Moving this patient to a less restrictive environment would likely result in decompensation. Request Healthcare Surrogate/Guardian Advocate?: No
--- NOTE | 2017-10-14 21:33 | P.PNOP ---
Subjective Interval history: The patient has obtained his brace. He wanted to review the results of the MRI again. He has no new complaints as far as pain in the lumbar spine. No new numbness or tingling. Physical Exam Vital signs: Vital Signs 10/14/17 05:37 10/14/17 13:32 Temperature 97.5 F L Pulse Rate 76 Respiratory Rate 17 17 Blood Pressure 101/53 L Pulse Oximetry 91 L Intake & Output 10/14/17 10/14/17 10/15/17 06:59 18:59 06:59 Intake Total 580 / 580 Balance 580 / 580 Intake: Oral 480 / 480 Oral Supplement 100 / 100 Other: # Voids 2 # Bowel Movements 0 Narrative: The patient is sitting in a chair with no acute distress. He has the tall we flexed brace applied. It is applied appropriately. Results - Labs CBC & Chem 7: 10/12/17 08:02 Assessment and Plan - Assessment and Plan Impression: 1. L1 acute compression fracture with 50% vertebral height loss. 2. L4-L5 grade 1 spondylolisthesis 3. L3 and L5 subacute to chronic compression fractures 4. Degenerative disc disease and osteoarthritis multiple levels with L1-L2 right neuroforaminal narrowing and L4-L5 bilateral neural foraminal narrowing. The patient has obtained the brace. It is appropriately fitting and the patient feels comfortable in it. Continue with the brace. Follow-up in the office in approximately 2 weeks or so to repeat x-rays of the thoracolumbar junction AP and lateral.
[2017-10-14] MEDS: traZODone 100 MG Tablet PO SCH (21:55)
[2017-10-15] MEDS: Propranolol 10 MG Tablet PO SCH ×3 (08:17→22:20)
[2017-10-15] MEDS: Folic Acid 1 MG Tablet PO SCH (08:18)
[2017-10-15] MEDS: Lisinopril 5 MG Tablet PO SCH (08:18)
[2017-10-15] MEDS: Venlafaxine XR 75 MG Capsule PO SCH (08:18)
--- NOTE | 2017-10-15 12:11 | P.PNPSY ---
Subjective Chief Complaint: Adjustment disorder with depressed mood Remarks: Reviewed electronic medical records and discussed case with staff. Follow-up was conducted in patient's room with MAXIMINO Boswell present. Patient states that he lives in a trailer and has difficulty shopping due to his decreased mobility. He states that he has not been sleeping and feels that the Trazodone does not help. He is requesting that the medication be changed to Remeron. I told patient that I would share his request with Dr. Morrow. Patient has been participating in activities, eating meals and taking naps intermittently. Andreia and I also shared that many of the stores will deliver groceries for a nominal fee. Review of Systems All other systems reviewed negative except as stated in HPI Comments: Patient has back pain which is chronic. Mental Status Examination Appearance: Appropriate Consciousness: Alert Orientation: x4 Motor Activity: Other (No motor abnormalities noted. No signs of withdrawal noted.) Speech: Unremarkable Language: Adequate Fund of Knowledge: Adequate Attention and Concentration: Adequate Memory: Unremarkable (Grossly intact on clinical exam) Mood: Other (Remains depressed) Affect: Other (Restricted) Thought Process & Associations: Intact Thought Content: Appropriate Hallucination Type: None Delusion Type: None Suicidal Ideation: Yes Suicidal Plan: No Suicidal Intention: No Homicidal Ideation: No Homicidal Plan: No Homicidal Intention: No Insight: Fair Judgment: Impulsive Assessment and Plan - Assessment (1) Adjustment disorder with depressed mood Code(s): F43.21 - Adjustment disorder with depressed mood Status: Acute - Plan Plan: Patient will be reevaluated Monday by the attending psychiatrist. Continue with current treatment plan. Justification for Continued Inpatient Stay: If moved to a less resistive environment patient may decompensate. Request Healthcare Surrogate/Guardian Advocate?: No
--- NOTE | 2017-10-15 16:14 | P.PN ---
Subjective Interval history: Follow-up on patient with acute on chronic back pain, ETOH, depression. She is seen and examined today. Reports continues to have pain. States that he is afraid to go home and not able to manage himself. States that the brace is helping and working for him. Denies SOB/ dyspnea. Denies chest pain, palpitations, headaches, dizziness. Denies fevers, chills, n/v/d. Denies hematuria, dysuria. Physical Exam Vital signs: Vital Signs 10/15/17 06:46 10/15/17 07:34 10/15/17 08:15 Temperature 97.2 F L Pulse Rate 58 L Respiratory Rate 17 17 Blood Pressure 88/48 L 112/93 H Pulse Oximetry 92 L 10/15/17 15:20 Temperature 97.8 F Pulse Rate 75 Respiratory Rate 18 Blood Pressure 140/74 Pulse Oximetry 95 Narrative: GENERAL: This is a well-nourished, well-developed patient, in no apparent distress. SKIN: Warm and dry. HEENT: Normocephalic. Pupils equal round and reactive. Nose without bleeding. Airway patent. NECK: Trachea midline. CARDIOVASCULAR: Regular rate and rhythm without murmurs, gallops, or rubs. RESPIRATORY: Diminished bases. No wheezes, rales, or rhonchi. GASTROINTESTINAL: Abdomen soft, non-tender, nondistended. Bowel Sounds normoactive x4. MUSCULOSKELETAL: Extremities without clubbing, cyanosis, or edema. NEUROLOGICAL: Awake and alert. No focal neuro deficit. Moves all extremities. Normal speech. Results - Labs CBC & Chem 7: 10/12/17 08:02 Assessment and Plan - Plan 57-year-old male with a history of alcohol abuse admitted to inpatient psychiatric unit for suicidal ideation Depression Anxiety Suicidal ideation -Management per psychiatric team Alcohol abuse serum EtOH 346 on admission -[facility] protocol -thiamine/folic acid/MVI daily -Monitor for signs of withdrawal -Seizure precautions -Discussed alcohol cessation Tachycardia, possibly secondary to alcohol withdrawal, improved -Improved on propanolol, decrease to BID -Continue to monitor heart rate Acute on chronic back pain Shortened right limb s/p fracture and ORIF in distant past DDD lumbar spine, multiple levels Lumbar stenosis Acute fracture L1 Old fracture L3 and L5 X-ray lumbar spine reveals moderate compression deformity at L1, mild compression deformity of L3 and L5, severe degenerative changes at L4-5 MRI lumbar spine reveals new insufficiency fracture involving L1 with 50% loss of height, degenerative changes noted throughout the lumbar spine, old compression deformity L3 and lateral pars defects and anterior listhesis L4 on L5 with facet arthropathy resulting in moderate central canal stenosis and severe bilateral foraminal stenosis -Continue with PT -recommending right shoe lift. Patient would benefit from follow-up with fireworks maker as outpatient. Wheeled walker ordered. -Vitamin D supplementation. -MR thoracic spine to assess for additional compression deformities. Showed no acute fracture or marrow infiltration of the thoracic spine. Tiny right paracentral disc bulge at C5-6, tiny left paracentral disc bulges at T6-7 and T7 -8 and tiny central disc bulge at T9-10 which resulted in no spinal stenosis or neuroforaminal narrowing. Mild degenerative changes throughout the thoracic spine. Acute compression deformity involving the L1 vertebral body -Consult Orthopedic service, appreciate assistance, recommends to wear brace. Follow-up with orthopedics on discharge -Oxycodone for pain -[facility] Prescription Drug Monitoring Database has been queried and verified. No previous narcotic use reported. Will prescribe narcotic on discharge for limited amount 3 days, will need to see orthopedic surgeon for follow up or pain management. Chest pain, ruled out ACS ?GI etiology given history of excessive alcohol abuse, recurrent nausea/ vomiting -Continue on PPI -monitor Hypertension BP improved -continue on lisinopril 5 mg daily -Continue to monitor BP and adjust treatment accordingly Transaminitis, likely secondary to alcohol use LFTs improving -Avoid hepatotoxic agents -complete alcohol cessation DVT prophylaxis -Patient is ambulatory Code Status: Full Code Discussed Condition With: Patient, nursing Discharge Planning: DC disposition by primary team
[2017-10-15] MEDS: LORazepam 1 MG Tablet PO PRN (20:50)
[2017-10-15] MEDS: traZODone 100 MG Tablet PO SCH (22:20)
[2017-10-16] MEDS: Venlafaxine XR 75 MG Capsule PO SCH (08:43)
[2017-10-16] MEDS: Folic Acid 1 MG Tablet PO SCH (08:44)
[2017-10-16] MEDS: Lisinopril 5 MG Tablet PO SCH (08:44)
[2017-10-16] MEDS: Propranolol 10 MG Tablet PO SCH ×2 (08:44→22:33)
--- NOTE | 2017-10-16 13:51 | P.PNPSY ---
Subjective Chief Complaint: Adjustment disorder with depressed mood Remarks: Patient seen and examined with nurse. Chart reviewed. Case discussed with nursing staff who reports that the patient has been somewhat isolative to room. Case discussed with counselor who reports that the patient has no rehabilitation benefits and so we will need to obtain physical therapy services elsewhere. On my examination today, the patient complains of poor sleep. He says that this is caused in part by "crazy thoughts" but also because of loud noises from the hallway. He continues to endorse some low mood and vague suicidal ideation. He denies any urge to hurt himself here on the unit. His affect is somewhat more reactive. Denies side effects from medications. No physical complaints. Vital Signs Temp Pulse Resp BP Pulse Ox 10/16/17 05:45 97.7 F 69 16 116/58 L 92 L 10/15/17 15:20 97.8 F 75 18 140/74 95 Intake and Output 10/15/17 10/16/17 10/16/17 22:59 06:59 14:59 Intake Total 240 / 240 360 / 360 Balance 240 / 240 360 / 360 Intake: Oral 240 / 240 360 / 360 Other: Weight 124.9 kg Labs reviewed. No new labs. Review of Systems All other systems reviewed negative except as stated in HPI Mental Status Examination Appearance: Appropriate Consciousness: Alert Orientation: x4 Motor Activity: Other (No abnormal motor movements noted.) Speech: Unremarkable Language: Adequate Fund of Knowledge: Adequate Attention and Concentration: Adequate Memory: Unremarkable (Grossly intact on clinical exam) Mood: Other (Dysphoric) Affect: Other (More reactive today) Thought Process & Associations: Intact Thought Content: Appropriate Hallucination Type: None Delusion Type: None Suicidal Ideation: Yes (Vague) Suicidal Plan: No Suicidal Intention: No Homicidal Ideation: No Homicidal Plan: No Homicidal Intention: No Insight: Fair Judgment: Impulsive Assessment and Plan - Assessment (1) Adjustment disorder with depressed mood Code(s): F43.21 - Adjustment disorder with depressed mood Status: Acute (2) Alcohol use disorder, moderate, dependence Code(s): F10.20 - Alcohol dependence, uncomplicated Status: Acute - Plan Plan: Titrate trazodone to 300 mg at bedtime, patient's reported previously efficacious dose, to improve sleep. Continue Effexor as ordered for now although we may consider titrating the dose of this medication tomorrow to target low mood. Hospitalist input noted and appreciated. Continue to monitor on the inpatient unit. Continue other medications and care as ordered. Justification for Continued Inpatient Stay: Medication changes. Risk for decompensation in less restrictive environment. Discharge Planning: Patient may be approaching maximal benefit from this hospital stay. I do perceive that there may be some factors such as depressive personality style or depressed functioning that may be perpetuating patient's reported symptoms. Some degree of symptom exaggeration to prolong his stay is also possible. Request Healthcare Surrogate/Guardian Advocate?: No
--- NOTE | 2017-10-16 16:00 | P.PN ---
Subjective Interval history: Follow-up on patient with acute on chronic back pain, ETOH, depression. Patient is seen and examined today. States that the brace is helping with his pain. Asking for cane. Asking if he could be discharged with pain medication. Discussed with patient extensively that we are unable to provide him with medication for long-term use. He needs to seek out pain management, PCP. Will recommend PCP and pain management referral on discharge. Verbalized understanding denies SOB/ dyspnea. Denies chest pain, palpitations, headaches, dizziness. Denies fevers, chills, n/v/d. Denies hematuria, dysuria. Physical Exam Vital signs: Vital Signs 10/16/17 05:45 Temperature 97.7 F Pulse Rate 69 Respiratory Rate 16 Blood Pressure 116/58 L Pulse Oximetry 92 L Intake & Output 10/15/17 10/16/17 10/16/17 18:59 06:59 18:59 Intake Total 240 / 240 360 / 360 Balance 240 / 240 360 / 360 Weight 124.9 kg Intake: Oral 240 / 240 360 / 360 Narrative: GENERAL: This is a well-nourished, well-developed patient, in no apparent distress. SKIN: Warm and dry. HEENT: Normocephalic. Pupils equal round and reactive. Nose without bleeding. Airway patent. NECK: Trachea midline. CARDIOVASCULAR: Regular rate and rhythm without murmurs, gallops, or rubs. RESPIRATORY: Diminished bases. No wheezes, rales, or rhonchi. GASTROINTESTINAL: Abdomen soft, non-tender, nondistended. Bowel Sounds normoactive x4. MUSCULOSKELETAL: Extremities without clubbing, cyanosis, or edema. NEUROLOGICAL: Awake and alert. No focal neuro deficit. Moves all extremities. Normal speech. Results - Labs CBC & Chem 7: 10/12/17 08:02 Assessment and Plan - Plan 57-year-old male with a history of alcohol abuse admitted to inpatient psychiatric unit for suicidal ideation Depression Anxiety Suicidal ideation -Management per psychiatric team Alcohol abuse serum EtOH 346 on admission -[facility] protocol -thiamine/folic acid/MVI daily -Monitor for signs of withdrawal -Seizure precautions -Discussed alcohol cessation Tachycardia, possibly secondary to alcohol withdrawal, improved -decrease to BID -Improved Acute on chronic back pain Shortened right limb s/p fracture and ORIF in distant past DDD lumbar spine, multiple levels Lumbar stenosis Acute fracture L1 Old fracture L3 and L5 X-ray lumbar spine reveals moderate compression deformity at L1, mild compression deformity of L3 and L5, severe degenerative changes at L4-5 MRI lumbar spine reveals new insufficiency fracture involving L1 with 50% loss of height, degenerative changes noted throughout the lumbar spine, old compression deformity L3 and lateral pars defects and anterior listhesis L4 on L5 with facet arthropathy resulting in moderate central canal stenosis and severe bilateral foraminal stenosis -Continue with PT -recommending right shoe lift. Patient would benefit from follow-up with piano accompanist as outpatient. Wheeled walker ordered. -Vitamin D supplementation. -MR thoracic spine to assess for additional compression deformities. Showed no acute fracture or marrow infiltration of the thoracic spine. Tiny right paracentral disc bulge at C5-6, tiny left paracentral disc bulges at T6-7 and T7 -8 and tiny central disc bulge at T9-10 which resulted in no spinal stenosis or neuroforaminal narrowing. Mild degenerative changes throughout the thoracic spine. Acute compression deformity involving the L1 vertebral body -Consult Orthopedic service, appreciate assistance, recommends to wear brace. Follow-up with orthopedics on discharge -Oxycodone for pain -[facility] Prescription Drug Monitoring Database has been queried and verified. No previous narcotic use reported. Will prescribe narcotic on discharge for limited amount 3 days, will need to see orthopedic surgeon for follow up or pain management. Chest pain, ruled out ACS ?GI etiology given history of excessive alcohol abuse, recurrent nausea/ vomiting -Continue on PPI Hypertension BP improved -continue on lisinopril 5 mg daily -Continue to monitor BP and adjust treatment accordingly Transaminitis, likely secondary to alcohol use LFTs improving -Avoid hepatotoxic agents -complete alcohol cessation DVT prophylaxis -Patient is ambulatory Stable from Hospitalist standpoint. We will sign off. Reconsult as needed. Thank you. Code Status: Full Code Discussed Condition With: Patient, nursing Discharge Planning: DC disposition by primary team
[2017-10-16 18:06] VITALS: O2SAT 95
[2017-10-16] MEDS: Melatonin 5 MG Tablet PO PRN (22:34)
[2017-10-16] MEDS: traZODone 100 MG Tablet PO SCH (22:34)
[2017-10-17] MEDS: Lisinopril 5 MG Tablet PO SCH (09:30)
[2017-10-17] MEDS: Propranolol 10 MG Tablet PO SCH ×2 (09:30→21:26)
[2017-10-17] MEDS: Folic Acid 1 MG Tablet PO SCH (09:36)
[2017-10-17] MEDS: Venlafaxine XR 75 MG Capsule PO SCH (09:36)
--- NOTE | 2017-10-17 13:34 | P.PNPSY ---
Subjective Chief Complaint: Adjustment disorder with depressed mood Remarks: Patient seen and examined with nurse. Chart reviewed. Case discussed with nursing staff. Patient noted to be irritable and somewhat entitled. Case discussed in treatment team with counselor, occupational therapist and recreation therapist. Occupational therapist does note that the patient is somewhat more social with medication adjustments. Counselor notes that the patient has no rehab or home PT benefits. He will therefore need to get outpatient physical therapy. On my examination today, the patient presents as somewhat manipulative. He tells me that a friend will be arriving to stay with him tomorrow evening to help him out at home, namely "to keep me from drinking. " He asks if we can hold him until tomorrow or maybe so she can arrive. He tells me "I don't want to be alone." He says that if he is alone he may start drinking and "do something stupid." In context it is clear that he is making a manipulative threat of potential self-harm if discharged before friend arrives tomorrow. Slept well overnight. Denies side effects from medications. No acute physical complaints. Vital Signs Temp Pulse Resp BP Pulse Ox 10/17/17 05:42 97.7 F 77 16 101/54 L 95 10/16/17 18:04 97.7 F 75 17 138/70 95 Labs reviewed. No new labs. Review of Systems All other systems reviewed negative except as stated in HPI Mental Status Examination Appearance: Appropriate Consciousness: Alert Orientation: x4 Motor Activity: Other (No motor abnormalities noted) Speech: Unremarkable Language: Adequate Fund of Knowledge: Adequate Attention and Concentration: Adequate Memory: Unremarkable (Grossly intact on clinical exam) Mood: Appropriate Affect: Appropriate Thought Process & Associations: Intact Thought Content: Appropriate Hallucination Type: None Delusion Type: None Suicidal Ideation: No (Not presently but some manipulative threats as noted above) Suicidal Plan: No Suicidal Intention: No Homicidal Ideation: No Homicidal Plan: No Homicidal Intention: No Insight: Fair Judgment: Impulsive Assessment and Plan - Assessment (1) Adjustment disorder with depressed mood Code(s): F43.21 - Adjustment disorder with depressed mood Status: Acute (2) Alcohol use disorder, moderate, dependence Code(s): F10.20 - Alcohol dependence, uncomplicated Status: Acute - Plan Plan: Patient bargaining to extend inpatient stay and making some fairly unsubtle manipulative threats in service of achieving this goal. I will retain the patient overnight until friend arrives tomorrow as I suspect that if discharged today, patient might simply manufacture circumstance to get readmitted until he can not be alone at home. Continue current psychotropic medications as ordered. Continue other medications and care as ordered. Justification for Continued Inpatient Stay: Risk for decompensation in less restrictive environment. Discharge Planning: Discharge home tomorrow. Request Healthcare Surrogate/Guardian Advocate?: No
--- NOTE | 2017-10-17 15:16 | P.TTN ---
- Patient Problems Problems: 1. Discharge planning 2. Medication compliance 3. Knowledge deficit 4. Lack of coping skills - Progress Toward Goals Provider Present: Dr. Nisha Morrow Provider Input: titrated his medications yesterday as different depressive symptoms continue Nurse Input: charge tiny reports no problems overnight and reported to be med compliant and meets criteria Psychiatric Counselors Present: Marlin Borja LCSW (continues with worries and negative thoughts but is hopeful to connect with outpatient care and follow up with mental health in community to assist with his depression - he is motivated for physical therapy since his insurance does not cover HHC or [facility] - he is constantly asking if his MRI can be [facility] for [facility]- will look into medical release and continuum of care for follow up with is clinic if we can fax as part of discharge planning - ) Group Spec/RT/OT/JONES Present: KAREN Ziegler (withdraws and keeps to self) Occupational Therapist Input: he has been more social and engaging more on the unit in past two days and appears more active/ improving overall - Documentation Teaching Recipient: Patient
[2017-10-17 16:48] VITALS: PULSE 88; RESP 18; TEMP 97.8
[2017-10-17 21:27] VITALS: BP 169/86
[2017-10-17] MEDS: traZODone 100 MG Tablet PO SCH (22:23)
[2017-10-18] MEDS: Folic Acid 1 MG Tablet PO SCH (08:04)
[2017-10-18] MEDS: Venlafaxine XR 75 MG Capsule PO SCH (08:05)
[2017-10-18] MEDS: Propranolol 10 MG Tablet PO SCH (08:05)
[2017-10-18] MEDS: Lisinopril 5 MG Tablet PO SCH (08:06)
--- NOTE | 2017-10-18 14:27 | P.DSPSY ---
Psychiatry Discharge Summary Inpatient Psychiatric care?: Yes Advance Directives: No Mental Health Advance Directive: No Health Care Proxy: No - Admission Admission Date: October 10, 2017 12:42 - Admission Diagnosis (1) Adjustment disorder with depressed mood Code(s): F43.21 - Adjustment disorder with depressed mood (2) Alcohol use disorder, moderate, dependence Code(s): F10.20 - Alcohol dependence, uncomplicated Brief History: The patient is a 57-year-old man, domiciled by himself in [place] , single, no kids, unemployed, supported by Social Security, with psychiatric history of bipolar disorder, alcohol use disorder, multiple psychiatric hospitalizations, last hospitalization was in the [facility] about 2 months ago, he is noted psychotropics at the moment, with past medical history of lower back pain, who came into the hospital for complaints of chest pain. Patient seen and examined today. States that he has been depressed for more than a year now and has been drinking whiskey. Patient states that he wants to drink himself to , when asked if he has suicidal ideation he nods his head and states that he really wants to go. States that he used to be detoxed at the [facility] before and placed on Bupropion but was not really taking it at home. Tearful, He was asked again about planning to hurt himself and he answered "Yes." Chart was reviewed. On psychiatric evaluation I find a patient that is quite vulnerable, tearful, stating that he is very depressed and he has no reason to live for. The patient reports that he has been drinking alcohol every day, thinking about committing suicide quite often," getting close day by day of killing myself". Patient reports that he has no batty, no family, no friends, poor financial situation, and for this reason he has been feeling hopeless, helpless, worthless , increases ideation, with a plan of overdosing or jumping off a bridge. Patient is logical, goal-directed. No paranoia, no delusions, no ideas of reference, no agitation or aggressive behavior present. The patient is oriented 3. No withdrawal symptoms present at the moment. Tobacco Use In Past 30 Days: Yes How Often Do You Have a Drink Containing Alcohol: 4 or more times a week Hospital Course: Patient was admitted to a locked, inpatient psychiatric unit. A general medical and orthopedic consultation were obtained. Appropriate precautions were in place throughout patient's hospital stay. Patient was seen and examined on the unit by psychiatry and also visited by counselor. Psychotropic medications were adjusted. Patient tolerated medications well without side effects. Patient had improvement in presenting psychiatric symptomatology during the course of his hospital stay. There was no evidence of any suicidality or homicidality on the inpatient unit. There was no evidence of self-care deficit secondary to mental illness. The patient did display some dependent traits and was noted towards the end of his hospital stay to be actively working to prolong his inpatient stay in a somewhat manipulative fashion. On the day of discharge: Patient seen and examined with nurse. Chart reviewed. Case discussed with nursing staff. No behavioral issues noted overnight. Nurse notes that the patient is improved relative to admission. On my examination today, the patient continues to bargain for additional inpatient days, although there is no identifiable therapeutic goal for retaining him in the hospital at this point. He has no suicidal or homicidal ideation, intent or plan. Affect is brighter versus admission, and I can elicit no depressive or hypomanic/manic symptoms. He has no audiovisual hallucinations, nor does he have any delusional material. He denies side effects from medications. Suicide and violence risk assessment on day of discharge both suggest lower imminent risk from mental illness and the patient's level of function is adequate for outpatient care. There are no acute risk factors: No suicidal or homicidal ideation, no severe depressive symptoms, no impairment in reality construction, no substance intoxication. We will bolster patient's protective factors by referring him for outpatient psychiatric services. Patient is felt to have maximized benefit from this inpatient psychiatric hospital stay. Since the counselor has informed me that the patient has benefits neither for physical therapy at rehab nor for home physical therapy, I have referred him for outpatient physical therapy instead. Patient is also to follow up with primary care and with orthopedics. Psychiatric follow-up as arranged by the counselor. I have counseled the patient to abstain from substances of abuse. I have counseled the patient regarding warning signs for need to return to the psychiatric emergency room as part of a general safety plan. - Discharge Discharge Date: 10/18/17 - Discharge Diagnosis (1) Adjustment disorder with depressed mood Diagnosis: Principal Code(s): F43.21 - Adjustment disorder with depressed mood Status: Resolved (2) Alcohol use disorder, moderate, dependence Diagnosis: Secondary Code(s): F10.20 - Alcohol dependence, uncomplicated Status: Chronic Discharge Disposition: Home - Discharge Instructions Discharge Diet: Regular Diet Activities You Can Perform: Weight Bearing As Tolerat - Discharge Time <= 30 minutes Mental Status Examination Appearance: Appropriate Consciousness: Alert Orientation: x4 Motor Activity: Other (No abnormal motor movements noted) Speech: Unremarkable Language: Adequate Fund of Knowledge: Adequate Attention and Concentration: Adequate Memory: Unremarkable (Grossly intact on clinical exam) Mood: Appropriate Affect: Appropriate Thought Process & Associations: Intact Thought Content: Appropriate Hallucination Type: None Delusion Type: None Suicidal Ideation: No Suicidal Plan: No Suicidal Intention: No Homicidal Ideation: No Homicidal Plan: No Homicidal Intention: No Mental Status Exam Remarks: Insight and judgment are perhaps fair. Discharge/Advance Care Plan - Results Vital Signs: Last Vital Signs Temp 97.8 F 10/17/17 16:00 Pulse 88 10/17/17 16:00 Resp 18 10/17/17 16:00 BP 169/86 H 10/17/17 21:26 Pulse Ox 95 10/17/17 16:00 Lab Results: Laboratory Results Hemoglobin A1c 5.5 % (4.3-6.0) 10/11/17 08:32 Triglycerides 149 mg/dL (42-150) 10/11/17 08:32 Cholesterol 175 mg/dL (120-200) 10/11/17 08:32 LDL Cholesterol, Calc 84 mg/dL (0-99) 10/11/17 08:32 HDL Cholesterol 61.7 mg/dL (40.0-60.0) H 10/11/17 08:32 TSH 3.320 uIU/mL (0.358-3.740) 10/12/17 08:02 Summary of Procedures: None done Imaging: ITS Impressions Lumbar Spine X-Ray 10/11/17 00:00 CONCLUSION: 1. Moderate compression deformity involving L1 as well as mild compression deformities involving L3 and L5 of indeterminate ages. 2. Grade I-II anterolisthesis of L4 in relation to L5 is noted. 3. Severe degenerative disc disease at L4-5. Lumbar Spine MRI 10/12/17 00:00 CONCLUSION: 1. New insufficiency fracture involving the L1 vertebral body with loss of approximately 50% mid and anterior vertebral body height. No evidence of retropulsion of osseous fragments and no evidence of epidural hematoma. 2. Degenerative changes of the lumbar spine as noted above. There is anterolisthesis of L4 and L5 secondary to both bilateral pars defects as well as degenerative disc changes resulting in severe bilateral neuroforaminal stenosis. Thoracic Spine MRI 10/13/17 00:00 CONCLUSION: 1. No acute fracture or marrow infiltration of the thoracic spine. 2. Tiny right paracentral disc bulge at C5-6, tiny left paracentral disc bulges at T6-7 and T7-8 and tiny central disc bulge at T9-10 which result in no spinal stenosis or neuroforaminal narrowing. 3. Mild degenerative changes throughout the thoracic spine. 4. Acute compression deformity involving the L1 vertebral body which is described in detail in the MRI of the lumbar spine report done the previous day. Pending Results: None - Medications Number of antipsychotic medications at discharge: 0 - Discharge Care Plan Goals to Promote Your Health: * To prevent worsening of your condition and complications * To maintain your health at the optimal level Directions to Meet Your Goals: Take your medications as prescribed Follow your dietary instruction Follow activity as directed Keep your appointments as scheduled Take your immunizations and boosters as scheduled If your symptoms worsen call your PCP, if no PCP go to Urgent Care Center or Emergency Room For 29/08 questions related to your inpatient stay or results of tests pending at discharge, please contact Dr. Jhon Morrow MD at Smoking is Dangerous to Your Health. Avoid second hand smoking
--- NOTE | 2017-10-18 15:23 | P.HPPSY ---
Provisional Diagnosis Admission Date: October 10, 2017 12:42 [place] I.: Major depressive disorder, alcohol induced mood disorder, alcohol use disorder Competence Certification of Person's Competence To Provide Express and Informed Consent I have personally examined Jhon Maradiaga, a person being served at [facility] on, October 18, 2017 1520. Express and informed consent means consent voluntarily given in writing, by a competent person, after sufficient explanation and disclosure of the subject matter involved to enable the person to make a knowing and willful decision without any element of force, fraud, deceit, duress, or other form of constraint or coercion. This person is 18 years of age or older, is not now known to be incompetent to consent to treatment with a guardian advocate, and does not have a health care surrogate or proxy currently making medical treatment decisions. I have found this person to be one of the following: [] Competent to provide express and informed consent, as defined above, for voluntary admission to this facility and is competent to provide express and informed consent for treatment. He/she has the consistent capacity to make well reasoned, willful, and knowing decisions concerning his or her medical or mental health treatment. The person fully and consistently understands the purpose of the admission for examination/placement and is fully capable of personally exercising all rights assured [place] [] Incompetent to provide express and informed consent to voluntary admission, and this is incompetent to provide express and informed consent to treatment. The person must be transferred to involuntary status and a petition for a guardian advocate filed with the Circuit Court. [x] Refusing to provide express and informed consent to voluntary admission but is competent to provide express and informed consent for treatment. The person must be discharged or transferred to involuntary status. Form shall be completed within 24 hours of a person's arrival at the receiving facility and filed in the clinical record of each person: 1. Admitted on a voluntary basis 2. Permitted to provide express and informed consent to his/her own treatment 3. Allowed to transfer from involuntary to voluntary status 4. Prior to permitting a person to consent to his or her own treatment after having been previously found incompetent to consent to treatment. History of Present Illness Capacity: Has capacity History of Present Illness: Late entry, this H&P was entered by mistake in the wrong DANA number The patient is a 57-year-old man, domiciled by himself in [place] , single, no kids, unemployed, supported by Social Security, with psychiatric history of bipolar disorder, alcohol use disorder, multiple psychiatric hospitalizations, [place] 2 [place], he is noted psychotropics at the moment, with past medical history of lower back pain, who came into the hospital for complaints of chest pain. Patient seen and examined today. States that he has been depressed for more than a year now and has been drinking whiskey. Patient states that he wants to drink himself to , when asked if he has suicidal ideation he nods his head and states that he really wants to go. States that he used to be detoxed at the [facility] before and placed on Bupropion but was not really taking it at home. Tearful, He was asked again about planning to hurt himself and he answered "Yes." Chart was reviewed. On psychiatric evaluation I find a patient that is quite vulnerable, tearful, stating that he is very depressed and he has no reason to live for. The patient reports that he has been drinking alcohol every day, thinking about committing suicide quite often," getting close day by day of killing myself". Patient reports that he has no batty, no family, no friends, poor financial situation, and for this reason he has been feeling hopeless, helpless, worthless , increases ideation, with a plan of overdosing or jumping off a bridge. Patient is logical, goal-directed. No paranoia, no delusions, no ideas of reference, no agitation or aggressive behavior present. The patient is oriented 3. No withdrawal symptoms present at the moment. PPHX: Self-reported bipolar disorder, alcohol use disorder, multiple psychiatric hospitalizations, last hospitalization [place], the patient was prescribed with bupropion 150 mg twice daily. PMHx: Lower back pain Substance Hx: Daily use of alcohol, about a quarter of Vodka Family Hx: No family psychiatric history Social Hx: Patient was born and raised in [place], he lives alone in [place], his single, no kids, unemployed, supported by Social Security, his highest level of education is 12th grade - Inpatient Certification I certify that the inpatient services were ordered in accordance with Medicare regulations governing the order. This includes certification that hospital inpatient services are reasonable and necessary and in the case of services not specified as inpatient-only under 42 CFR 419.22(n), that they are appropriately provided as inpatient services in accordance to with the 2-midnight benchmark under 43 CFR 412.3(e) I certify that inpatient psychiatric hospital services are medically necessary. Evaluation and treatment and/or diagnostic testing are expected to improve the patient's condition. The patient needs on a daily basis, active treatment furnished directly by or requiring the supervision of inpatient psychiatric facility personnel. Estimated Total Length of Stay (Days): 7 Plans for Post Hospital Care: Not yet determined PMFSH - History History Provided By: Patient - Medical History Medical History: Medical History (Last Updated 10/13/17 @ 16:57 by TIERRA Andrew) S/P ORIF (open reduction internal fixation) fracture (Acute) Chronic back pain (Acute) DDD (degenerative disc disease), lumbar (Acute) History of lower leg fracture (Acute) Alcohol abuse (Acute) Depression (Acute) Femur fracture, right Patella fracture - Family History Family History: Family History (Last Reviewed 10/13/17 @ 16:37 by TIERRA Andrew) Mother Heart disease Grandparent No problems noted. Father Heart disease - Tobacco History Second Hand Smoke Exposure: No Tobacco Use In Past 30 Days: Yes Smoking Status: Current every day smoker (Half a pack a day) Tobacco Type: Cigarettes - Alcohol History How Often Do You Have a Drink Containing Alcohol: 4 or more times a week - Substance Use History Substance History: Active Abuse - Substance Use Type Alcohol Status: Active Route Used: By Mouth Frequency: "a lot", daily, whiskey Reason for Use: Calm Down Comment: Patient reports he drinks daily and drinks "a lot". Patient reports when he drinks he is drinking whiskey. Medications and Allergies Active Medications: Active Medications Acetaminophen (Tylenol) 650 mg PO Q4H PRN PRN Reason: PAIN 1-5 AND/OR FEVER >101F Last Admin: 10/12/17 08:56 Dose: 650 mg Al Hydrox/Mg Hydrox/Simethicone (Mag-Al Plus Susp Liq) 30 ml PO Q6H PRN PRN Reason: DYSPEPSIA Al Hydroxide/Mg Hydroxide (Milk Of Magnesia Liq) 30 ml PO Q12H PRN PRN Reason: Mild Constipation Flumazenil (Romazecon Inj) 0.2 mg IV.PUSH Q1M PRN PRN Reason: OVERSEDATION Folic Acid (Folic Acid) 1 mg PO DAILY [facility] Last Admin: 10/18/17 08:04 Dose: 1 mg Haloperidol Lactate (Haldol Inj) 1 mg IV.PUSH Q15M PRN PRN Reason: for severe agitation Hydroxyzine HCl (Atarax) 50 mg PO Q6H PRN PRN Reason: ANXIETY Last Admin: 10/18/17 14:12 Dose: 50 mg Ibuprofen (Motrin) 800 mg PO Q8H PRN PRN Reason: BREAKTHROUGH PAIN Last Admin: 10/14/17 20:51 Dose: 800 mg Lisinopril (Prinivil) 5 mg PO DAILY [facility] Last Admin: 10/18/17 08:06 Dose: 5 mg Lorazepam (Ativan) 1 mg PO Q4H PRN PRN Reason: for CIWA 8-10 Last Admin: 10/15/17 20:50 Dose: 1 mg Lorazepam (Ativan) 2 mg PO Q2H PRN PRN Reason: for CIWA 11-14 Last Admin: 10/12/17 08:55 Dose: 2 mg Lorazepam (Ativan Inj) 2 mg IV.PUSH Q1H PRN PRN Reason: for CIWA 15-20 Lorazepam (Ativan Inj) 2 mg IV.PUSH Q15M PRN PRN Reason: for CIWA > 20 Lorazepam (Ativan Inj) 1 mg IV.PUSH Q4H PRN PRN Reason: for CIWA 8-10 Lorazepam (Ativan Inj) 2 mg IV.PUSH Q2H PRN PRN Reason: for CIWA 11-14 Melatonin (Melatonin) 5 mg PO HS PRN PRN Reason: INSOMNIA Last Admin: 10/16/17 22:34 Dose: 5 mg Multivitamins (Theragran) 1 tab PO DAILY [facility] Last Admin: 10/18/17 08:04 Dose: 1 tab Nicotine (Habitrol 21 Mg Patch.24 Hr) 1 patch T-DERMAL DAILY [facility] Last Admin: 10/18/17 08:04 Dose: 1 patch Oxycodone HCl (Roxicodone) 5 mg PO Q6H PRN PRN Reason: PAIN SCALE 1 TO 5 Last Admin: 10/16/17 09:20 Dose: 5 mg Oxycodone HCl (Roxicodone) 10 mg PO Q6H PRN PRN Reason: PAIN SCALE 6 TO 10 Last Admin: 10/18/17 14:09 Dose: 10 mg Pantoprazole Sodium (Protonix) 40 mg PO DAILY [facility] Last Admin: 10/18/17 08:05 Dose: 40 mg Patch Removal (Remove Old Patch) 1 each T-DERMAL DAILY [facility] Last Admin: 10/18/17 09:08 Dose: Not Given Propranolol HCl (Inderal) 10 mg PO BID [facility] Last Admin: 10/18/17 08:05 Dose: 10 mg Thiamine HCl (Vitamin B1) 100 mg PO DAILY [facility] Last Admin: 10/18/17 08:05 Dose: 100 mg Trazodone HCl (Desyrel) 300 mg PO DAILY@22 [facility] Last Admin: 10/17/17 22:23 Dose: 300 mg Venlafaxine HCl (Effexor Xr) 75 mg PO DAILY [facility] Last Admin: 10/18/17 08:05 Dose: 75 mg Vitamin D (Vitamin D3) 1,000 unit PO DAILY [facility] Last Admin: 10/18/17 08:05 Dose: 1,000 unit Allergies Allergy/AdvReac Type Severity Reaction Status Date / Time No Known Allergies Allergy Unverified 07/21/17 22:00 Results - Labs CBC & Chem 7: 10/12/17 08:02 Exam Vital signs: Vital Signs 10/17/17 16:00 10/17/17 21:26 Temperature 97.8 F Pulse Rate 88 Respiratory Rate 18 Blood Pressure 157/72 H 169/86 H Pulse Oximetry 95 Mental Status Examination Appearance: Appropriate Consciousness: Alert Orientation: x4 Motor Activity: Other (No abnormal motor movements noted) Speech: Unremarkable Language: Adequate Fund of Knowledge: Adequate Attention and Concentration: Adequate Memory: Unremarkable (Grossly intact on clinical exam) Mood: Sad Affect: Sad Thought Process & Associations: Intact Thought Content: Appropriate Hallucination Type: None Delusion Type: None Suicidal Ideation: Yes Suicidal Plan: No Suicidal Intention: No Homicidal Ideation: No Homicidal Plan: No Homicidal Intention: No Insight: Fair Judgment: Impulsive Assessment and Plan - Assessment (1) Adjustment disorder with depressed mood Code(s): F43.21 - Adjustment disorder with depressed mood Status: Acute - Plan Plan: On psychiatric evaluation today the patient presents with symptomatology of depression including anhedonia, hopelessness, helplessness, worthlessness, increased alcohol use, suicidal ideation in the context of persistent alcohol use, poor family and social support. The patient has history of bipolar disorder, he has being in Wellbutrin 150 mg twice daily, he has multiple psychiatric hospitalizations, he was hospitalized 2 months ago in the findings, has suicidal attempts and at this moment he has an increased risk of danger to self and he needs psychiatric admission for stabilization. Discontinue Wellbutrin given the elevated risk of seizures with alcoholism. Start Cymbalta 30 mg daily for pain and depression. [facility] protocol. Patient will sign voluntary admission. Justification for Continued Inpatient Stay: Justification for Continued Inpatient Stay: Admission indicated Request Healthcare Surrogate/Guardian Advocate?: No
== END 2017-10-18 17:00 | disposition home or self-care (01) ==
LOC: H260 12:42
PROVIDERS: ADMIT Psychiatry & Neurology Psychiatry; ATTEND Psychiatry & Neurology Psychiatry